=== PATIENT | male | born 1960 | race Caucasian/White ===

== ENCOUNTER 2024-11-22 09:23 | Outpatient (CLI) | payer MEDICARE, SELFPAY ==
--- OUTSIDE RECORDS SUMMARY | 2024-11-22 09:31 | XMS_ITS | Referral Summary ---
Author Organization [facility] Office Building [address] [place] [address] Care Team Providers Care Piping Design Specialist Name Role Phone Tomi Arenas MD Primary Care Provider Yee Tolbert Unavailable [phone] Fei Lind MD Unavailable [phone] Angela Rosales NP Unavailable [phone] Encounters Date Type Department Care Team Description 10/20/2024 10:38 AM CDT - 10/20/2024 11:59 PM CDT Hospital Encounter [facility] 2 [facility] [address] [place] [address] Fei Lind MD Spondylosis of lumbar region without myelopathy or radiculopathy (Primary Dx) Discharge Disposition: Discharge to home or self care 10/04/2024 1:21 PM CDT - 10/04/2024 11:59 PM CDT Hospital Encounter [facility] 2 [facility] [address] [place] [address] Fei Lind MD Sacroiliitis Discharge Disposition: Discharge to home or self care 09/23/2024 9:25 AM CDT - 09/23/2024 11:59 PM CDT Hospital Encounter [facility] 2 [facility] [address] [place] [address] Angela Rosales, JESUS Sacroiliitis (Primary Dx) Discharge Disposition: Discharge to home or self care from Last 3 Months Allergies No known active allergies Medications atenoloL (TENORMIN) 50 mg tablet Take 1 tablet (50 mg total) by mouth daily 2 Active clopidogreL (PLAVIX) 75 mg tablet Take 1 tablet (75 mg total) by mouth daily 3 Active fluorouraciL (EFUDEX) 5 % cream APPLY TO HANDS UP TO FOREARMSWITH GLOVES TWICE DAILY X 3 WEEKS 4 Active gabapentin (NEURONTIN) 100 mg capsule Take 1 capsule (100 mg total) by mouth 3 (three) times a day 4 Active hydroCHLOROthiaz macho (HYDRODIURIL) 25 mg tablet Take 1 tablet (25 mg total) by mouth daily 0 Active nitroglycerin (NITROSTAT) 0.[address] 1 tablet (0.4 mg total) under the tongue every 5 (five) minutes as needed 7 Active traZODone (DESYREL) 150 mg tablet Take 1 tablet (150 mg total) by mouth daily as needed 2 Active diclofenac sodium (VOLTAREN) 1 % gel 3 Active rosuvastatin (CRESTOR) 40 mg tablet Take 1 tablet (40 mg total) by mouth daily 4 Active multivit-min/fol ic/vit K/lycop (MEN'S MULTIVITAMIN ORAL) Take by mouth Active ascorbic acid (ascorbic acid with khloe hips) 500 mg tablet,chewable daily Acti ve glucosam-chondro itin-diet cb25 116-100 mg capsule Take by mouth Active omega-3 fatty acids-fish oil 300-1,000 mg capsule Take 2 capsules (2 g total) by mouth daily Active flaxseed oiL 1,000 mg capsule Take by mouth Active cetirizine (ZyrTEC) 10 mg tablet Take 1 tablet (10 mg total) by mouth daily Active celecoxib (CeleBREX) 200 mg capsule Take 1 capsule (200 mg total) by mouth 2 (two) times a day for 14 days 28 capsule 4 Active Active Problems Problem Noted Date Diagnosed Date Status post reverse total shoulder replacement, left 02/10/2024 Rotator cuff arthropathy, left 01/25/2024 Pain of lower extremity 12/01/2023 Sacroiliitis 10/29/2023 Hyperlipidemia 09/15/2023 Hypertension 09/15/2023 Mitral valve disorder 09/15/2023 Stenosis of cervical spine with myelopathy 01/06 Cervical radiculopathy 01/24/2022 Coronary artery disease invo lving [place] coronary artery of [place] heart without angina pectoris 07/20/2016 S/P angioplasty with stent 07/20/2016 Resolved Problems Problem Noted Date Diagnosed Date Resolved Date Lumbar radiculopathy, acute 10/21/2021 12/17/2023 Social History Tobacco Use Types Packs/Day Years Used Date Smoking Tobacco: Never Smokeless Tobacco: Never Tobacco Cessation:Counseling Given: Not Answered Alcohol Use Standard Drinks/Week Comments Yes 0 (1 standard drink = 0.6 oz pur e alcohol) AUDIT-C Answer Date Recorded Q1: How often do you have a drink containing alc ohol? 2-4 times a month 04/07/2024 Q2: How many drinks containi ng alcohol do you have on a typical day when you are drinking? 3 or 4 04/07/2024 Q3: How often do you have si x or more drinks on one occasion? Monthly 04/07/2024 PHQ-2 Answer Date Recorded PHQ-2 Total Score (If total score is 3 or more points, staff should administer the PHQ-9) 0 01/21/2024 PHQ-9 Answer Date Recorded PHQ-9 Total Score 1 01/21/2024 Personal Safety Answer Date Recorded Have you ever been in or are you currently in a harmful physical or emotional relationship or is someone making you feel afraid or unsafe? Denies 02/11/2024 Sex and Gender Information Value Date Recorded Sex Assigned at Not on file Legal Sex Male 12:36 AM GLOVE FACTORY SEWER Gender Identity Not on file Sexual Orientation Not on file Last Filed Vital Signs Vital Sign Reading Time Taken Comments Blood Pressure 127/85 10/20/2024 10:54 AM CDT Pulse 57 10/20/2024 10:54 AM CDT Temperature 36.3 C (97.4 F) 10/04/2024 1:32 PM CDT Respiratory Rate 18 10/20/2024 10:54 AM CDT Oxygen Saturation 99% 10/20/2024 10:54 AM CDT Inhaled Oxygen Concentration - - Weight 91.2 kg (201 lb) 04/07/2024 9:06 AM CDT Height 180.3 cm (5' 11) 04/07/2024 9:06 AM CDT Body Mass Index 28.03 04/07/2024 9:06 AM CDT Plan of Treatment Not on file Medical Devices Implanted Type Area Nurse Aide Evaluator Device Identifier Shelf Expiration Date Model / Serial / Lot [employer] Implant Pin Kit Glenoid Ar-9607s - Sna - [id number] Implanted:Qty: 1 on 02/11/2024 by Rex Munroe MD at [facility] Pin Left: Shoulder [employer] AR-9607S / NA / [id number] [employer] Univers Revers Shoulder 10 Stem Humeral Sterile Ar-9501-10s - [id number] Implanted:Qty: 1 on 02/11/2024 by Rex Munroe MD at [facility] Left: Shoulder [employer] [id number] 04/28/2027 AR-9501-1 0S / / [id number] [employer] Cup Humeral Univers Revers +2 Od36mm Shoulder Left Suture Kk-[id number] - [id number] Implanted:Qty: 1 on 02/11/2024 by Rex Munroe MD at [facility] Left: Shoulder [employer] [id number] 01/27/2028 AR-9502F- 36LCPC / / [id number] [employer] Univers Revers Biosync 39mm 24mm Glenosphere Taper Baseplate Jl-[id number] - [id number] Implanted:Qty: 1 on 02/11/2024 by Rex Munroe MD at [facility] Left: Shoulder [employer] [id number] 02/27/2028 AR-9564-2 439 / / [id number] [employer] Component Glenoid Modular Post Reverse 20mm Ar-9582-20 - [id number] Implanted:Qty: 1 on 02/11/2024 by Rex Munroe MD at [facility] Left: Shoulder [employer] 08/26/2028 AR-9582-2 0 / / [id number] [employer] Baseplate 24mm 20 Deg Full Augment Td-[id number] - [id number] Implanted:Qty: 1 on 02/11/2024 by Rex Munroe MD at [facility] Left: Shoulder [employer] 09/26/2028 AR-9580-2 420S / / [id number] [employer] Univers Revers 5.5mm 44mm Lock Modular Glenoid Peripheral Screw Ar-9563-44 - [id number] Implanted:Qty: 2 on 02/11/2024 by Rex Munroe MD at [facility] Left: Shoulder [employer] 10/27/2027 AR-9563-4 4 / / [id number] [employer] Insert Humeral Combo Reverse Poly Univers Revers +3x36mm Xd-6451-2068-3 - [id number] Implanted:Qty: 1 on 02/11/2024 by Rex Munroe MD at [facility] Left: Shoulder [employer] [id number] 05/28/2025 AR-9503-3 639-3 / / [id number] Procedures Procedure Name Priority Date/Time Associated Diagnosis Comments PAIN MGMT IMAGING SI JOINT RIGHT Schedule Routine, Read Routine (OP Routine) 10/04/2024 2:02 PM CDT Sacroiliitis from Last 3 Months Results * Imaging SI Joint Injection Right ([id number]) (10/04/2024 2:02 PM CDT) Narrative [facility] - 10/04/2024 2:03 PM CDT The images from this study are not interpreted by Radiology. Please refer to the physician's procedure / OR operative note. us Angela Rosales NP IMG PAIN MGMT PROCEDURES Fin al Result [facility] from Last 3 Months Insurance MEDICARE BLUE CROSS MEDICARE SUPPLEMENT MEDICARE [facility] CR[facility] MEDICARE SUPPLEMENT Advance Directives For more information, please contact: [phone] * Full Code (Latest Code Status on File) Date Activated Date Inactivated Comments 02/11/2024 10:38 AM 02/11/2024 5:12 PM Care Teams Piping Design Specialist Relationship Specialty Start Date End Date Tomi Arenas MD PCP - General 08/24/07 Yee Tolbert PA 4 [facility] [address] [place] [address] Physician Daycare Director Orthopedic Surgery 02/11/24 Fei Lind MD 2 [facility] [address] [place] [address] Consulting Physician Anesthesiology 10/20/24 Angela Rosales NP 1 [facility] [place] [address] Nurse Practitioner Family Medicine 10/20/24
--- OUTSIDE RECORDS SUMMARY | 2024-11-22 09:31 | XMS_ITS | Clinical Summary ---
Author Organization [facility] Address [address] [place] [address] Phone Care Team Providers Care Pizza Cook Name Role Phone Tomi Arenas MD Primary Care Provider Allergies No known active allergies Medications atorvastatin (LIPITOR) 40 mg tablet TK 1 T PO D 05/16/2020 Active celecoxib (CeleBREX) 200 mg capsule TK 1 C PO D 05/16/2020 Active clopidogreL (PLAVIX) 75 mg Tablet TK 1 T PO D 05/16/2020 Active atenoloL (TENORMIN) 50 mg tablet TK 1 T PO QD 05/16/2020 Active traZODone (DESYREL) 150 mg tablet 150 mg. 05/16/2020 Active Active Problems No known active problems Family History Medical History Relation Name Comments Cancer Mother Brain Tumor Relation Name Status Comments Mother Social History Tobacco Use Types Packs/Day Years Used Date Smoking Tobacco: Former Smokeless Tobacco: Never Alcohol Use Standard Drinks/Week Comments Yes 0 (1 standard drink = 0.6 oz pur e alcohol) Sex and Gender Information Value Date Recorded Sex Assigned at Not on file Legal Sex Male 1:47 PM JAVA ARCHITECT Gender Identity Not on file Sexual Orientation Not on file Last Filed Vital Signs Vital Sign Reading Time Taken Comments Blood Pressure 120/80 08/29/2020 9:21 AM JAVA ARCHITECT Pulse 60 08/29/2020 9:21 AM JAVA ARCHITECT Temperature 36.5 C (97.7 F) 08/29/2020 9:21 AM JAVA ARCHITECT Respiratory Rate - - Oxygen Saturation - - Inhaled Oxygen Concentration - - Weight 85.7 kg (189 lb) 08/29/2020 9:21 AM JAVA ARCHITECT Height 180.3 cm (5' 11) 08/29/2020 9:21 AM JAVA ARCHITECT Body Mass Index 26.36 08/29/2020 9:21 AM JAVA ARCHITECT Plan of Treatment Health Maintenance Due Date Last Done Comments DTAP/TDAP/TD VACCINES (1 - Tdap) 1979 COLORECTAL SCREENING 2005 Colorectal Cancer Screening 2005 FIT-DNA Q 3 years 2005 FIT/FOBT Q 1 year 2005 Flex Sig/CT Colonography Q 5 years 2005 ZOSTER VACCINE (1 of 2) 2010 INFLUENZA VACCINE (#1) 2024 RSV VACCINE (60+ or ) (1 - 1-dose 75+ series) 2035 Insurance [employer] BLUE PREFERRED Care Teams Pizza Cook Relationship Specialty Start Date End Date Tomi Arenas MD [address] [place] [address] PCP - General Family Practice 08/29/20
--- OUTSIDE RECORDS SUMMARY | 2024-11-22 09:31 | XMS_ITS | Clinical Summary ---
Author Organization [facility] Address [address] [place] [address] Phone Care Team Providers Care Customs Examiner Name Role Phone Tomi Arenas MD Primary Care Provider [phone] Medications methylPREDNISol one (MEDROL DOSPACK) 4 MG Tablet Therapy Pack See product package insert for dosing schedule 21 Tablet 06/12/2023 Active Social History Tobacco Use Types Packs/Day Years Used Date Smoking Tobacco: Never Smokeless Tobacco: Never Tobacco Cessation:Counseling Given: Not Answered Alcohol Use Standard Drinks/Week Comments Not Currently 0 (1 standard drink = 0.6 oz pur e alcohol) Sex and Gender Information Value Date Recorded Sex Assigned at Not on file Legal Sex Male 11:37 PM CDT Gender Identity Not on file Sexual Orientation Not on file Last Filed Vital Signs Vital Sign Reading Time Taken Comments Blood Pressure 128/68 06/12/2023 8:58 PM FINAL TESTER Pulse 66 06/12/2023 8:58 PM FINAL TESTER Temperature 36.8 C (98.3 F) 06/12/2023 7:44 PM FINAL TESTER Respiratory Rate 18 06/12/2023 8:58 PM FINAL TESTER Oxygen Saturation 99% 06/12/2023 8:58 PM FINAL TESTER Inhaled Oxygen Concentration - - Weight 86.2 kg (190 lb) 06/12/2023 7:44 PM FINAL TESTER Height 180.3 cm (5' 11) 06/12/2023 7:44 PM FINAL TESTER Body Mass Index 26.5 06/12/2023 7:44 PM FINAL TESTER Plan of Treatment Health Maintenance Due Date Last Done Comments Hepatitis C Virus (HCV) Screening 1960 TdaP Immunization 1960 Colonoscopy 2005 Colorectal Cancer Screening 2005 Cologuard 2010 Immunochemical Fecal Occult Blood 2010 Pneumococcal Immunization (50+ years) (1 of 1 - PCV) 2010 Zoster Immunization (1 of 2) 2010 PSA Discussion 2015 Influenza Immunization (#1) 2024 09/0 01/2023, 03/24/2022, 03/29/2021, Additional history exists SARS-COV-2 Immunization ( season) 2024 03/28/2022, 05/01/2021, 09/19/2020, Additional history exists Respiratory Syncytial Virus (RSV) Immunization (Adult) (1 - 1-dose 75+ series) 2035 Hepatitis B Immunization Completed 999, 12/18/1998, 11/20/1998 DTaP/Tdap/Td Immunization Discontinued 09/23/2005 Meningococcal Immunization (ACWY) Aged Out No longer eligible based on patient's age to complete this topic Rotavirus Immunization Aged Out No lo nger eligible based on patient's age to complete this topic Insurance MEDICARE [facility] Care Teams Customs Examiner Relationship Specialty Start Date End Date Tomi Arenas MD [address] [place] [address] PCP - General Family Medicine 06/12/23
--- OUTSIDE RECORDS SUMMARY | 2024-11-22 09:31 | XMS_ITS | Clinical Summary ---
Author Organization [facility] Office Building [address] [place] [address] Care Team Providers Care Aerial Hurricane Hunter Name Role Phone Tomi Arenas MD Primary Care Provider Yee Tolbert Unavailable [phone] Fei Lind MD Unavailable [phone] Angela Rosales NP Unavailable [phone] Allergies No known active allergies Medications atenoloL [...] radiculopathy 01/24/2022 Coronary artery disease invo lving [place] coronary artery of [place] heart without angina pectoris 07/20/2016 S/P angioplasty with stent 07/20/2016 Resolved Problems Problem Noted Date Diagnosed Date Resolved Date Lumbar radiculopathy, acute 10/21/2021 12/17/2023 Encounters Date Type Department Care Team Description 10/20/2024 10:38 AM CDT - 10/20/2024 11:59 PM CDT Hospital Encounter [facility] [address] [place] [address] Fei Lind MD Spondylosis of lumbar region without myelopathy or radiculopathy (Primary Dx) Discharge Disposition: Discharge to home or self care 10/04/2024 1:21 PM CDT - 10/04/2024 11:59 PM CDT Hospital Encounter [facility] 2 [facility] [address] [place] [address] Fei Lind MD Sacroiliitis Discharge Disposition: Discharge to home or self care 09/23/2024 9:25 AM CDT - 09/23/2024 11:59 PM CDT Hospital Encounter [facility] 2 [facility] [address] [place] [address] Angela Rosales NP Sacroiliitis (Primary Dx) Discharge Disposition: Discharge to home or self care from Last 3 Months Surgical History Surgery Date Site/Laterality Comments KNEE ARTHROSCOPY 2008 Right Arthroscopy knee BACK SURGERY Back surgery, discectomy- lumbar KNEE ARTHROCENTESIS Arthrocentesis of the right knee joint HERNIA REPAIR CORONARY ANGIOPLASTY WITH STENT PLACEMENT 06/29/2011 - 06/28/2012 x 2 CERVICAL FUSION 08/27/2022 - 09/26/2022 CARPAL TUNNEL RELEASE Left Medical History Medical History Date Comments MVP (mitral valve prolapse) Hypertension HLD (hyperlipidemia) CAD (coronary artery disease) Family History Medical History Relation Name Comments Hypertension Other Family history of Hypertension; Relation Name Status Comments Other Social History Tobacco Use Types Packs/Day Years [...] on file Legal Sex Male 12:36 AM DIABETES SPECIALIST Gender Identity Not on file Sexual Orientation Not on file Obstetrics History Last Filed Vital Signs Vital Sign Reading [...] 04/07/2024 9:06 AM CDT Plan of Treatment Health Maintenance Due Date Last Done Comments Colon Cancer Screening-Colonoscopy 1960 Hepatitis C Screening 1960 Prostate Cancer Screening-PSA 1960 Regular Well Visit/Exam 18-64 1978 DTaP/Tdap/Td Vaccine (1 - Tdap) 09/24/2005 09/23/2005 Zoster Vaccine (1 of 2) 2010 Depression Screening 01/20/2025 01/21/2024, 01/21/2024, 12/17/2023, Additional history exists Influenza Vaccine (Season Ended) 2025 03/06/2023, 03/24/2022, 03/29/2021, Additional history exists Hepatitis B Screening Completed 05/21/1999 , 12/18/1998, 11/20/1998 Pneumococcal vaccine <65 Aged Out No longer eligible based on patient's age to complete this topic Medical Devices Implanted Type Area Education Rn Device Identifier Shelf Expiration Date Model / Serial / Lot [employer] Implant Pin Kit Glenoid Ar-9607s - Sna - [id number] Implanted:Qty: 1 on 02/11/2024 by Rex Munroe MD at [facility] Pin Left: Shoulder [employer] AR-9607S / NA / [id number] [employer] Univers Revers Shoulder 10 Stem Humeral Sterile Ar-9501-10s - [id number] Implanted:Qty: 1 on 02/11/2024 by Rex Munroe MD at [facility] Left: Shoulder [employer] [id number] 04/28/2027 AR-9501-1 0S / / [id number] [employer] Cup Humeral Univers Revers +2 Od36mm Shoulder Left Suture Ov-[id number]-[id number] - [id number] Implanted:Qty: 1 on 02/11/2024 by Rex Munroe MD at [facility] Left: Shoulder [employer] [id number] 01/27/2028 AR-9502F- 36LCPC / / [id number] [employer] Univers Revers Biosync 39mm 24mm Glenosphere Taper Baseplate My-2296-3389 - [id number] Implanted:Qty: 1 on 02/11/2024 by Rex Munroe MD at [facility] Left: Shoulder [employer] [id number] 02/27/2028 AR-9564-2 439 / / [id number] [employer] Component Glenoid Modular Post Reverse 20mm Ar-9582-20 - [id number] Implanted:Qty: 1 on 02/11/2024 by Rex Munroe MD at [facility] Left: Shoulder [employer] 08/26/2028 AR-9582-2 0 / / [id number] [employer] Baseplate 24mm 20 Deg Full Augment Pu-[id number] - [id number] Implanted:Qty: 1 on 02/11/2024 by Rex Munroe MD at [facility] Left: Shoulder [employer] 09/26/2028 AR-9580-2 420S / / [id number] [employer] Univers Revers 5.5mm 44mm Lock Modular Glenoid Peripheral Screw Ar-9563-44 - [id number] Implanted:Qty: 2 on 02/11/2024 by Rex Munroe MD at [facility] Left: Shoulder [employer] 10/27/2027 AR-9563-4 4 / / [id number] [employer] Insert Humeral Combo Reverse Poly Univers Revers +3x36mm Fa-[id number] - [id number] Implanted:Qty: 1 on 02/11/2024 by Rex Munroe MD at [facility] Left: Shoulder [employer] [id number] 05/28/2025 AR-9503-3 639-3 [id number] Procedures Procedure Name Priority Date/Time Associated Diagnosis Comments PAIN MGMT IMAGING SI JOINT RIGHT Schedule Routine, Read Routine (OP Routine) 10/04/2024 2:02 PM CDT Sacroiliitis from Last 3 Months Results * Imaging SI Joint Injection Right ([id number]) (10/04/2024 2:02 PM CDT) Narrative [facility] - 10/04/2024 2:03 PM CDT The images from this study are not interpreted by Radiology. Please refer to the physician's procedure / OR operative note. Angela Rosales NP IMG PAIN MGMT PROCEDURES Fin al Result [facility] from Last 3 Months Insurance MEDICARE [facility] MEDICARE SUPPLEMENT MEDICARE [facility] BLUE CROSS MEDICARE SUPPLEMENT Advance Directives For more information, please contact: [phone] * Full Code (Latest Code Status on File) Date Activated Date Inactivated Comments 02/11/2024 10:38 AM 02/11/2024 5:12 PM Care Teams Aerial Hurricane Hunter Relationship Specialty Start Date End Date Tomi Arenas MD PCP - General 08/24/07 Yee Tolbert PA [address] [facility] [address] [place] [address] Physician Embedded Firmware Developer Orthopedic Surgery 02/11/24 Fei Lind MD [address] [facility] [address] [place] [address] Consulting Physician Anesthesiology 10/20/24 Angela Rosales NP [address] [facility] [place] [address] Nurse Practitioner Family Medicine 10/20/24
--- NOTE | 2024-11-22 10:30 | NEURO_ITS ---
Impression: # Complains of numbness of right hand. Status post cervical spine surgery in the past. ? # Mild early Carpal Tunnel Syndrome (sensory). ? # No ulnar neuropathy. ? # Needle/EMG exam mildly abnormal in right tricep. ? # Clinical correlation recommended. Nerve Conduction Studies Anti Sensory Summary Table ?Stim Site NR Peak (ms) P-T Amp (?V) Site1 Site2 Delta-P (ms) Dist (cm) Amadou (m/s) Right Median Anti Sensory (2-3nd Digit) Wrist ? 3.6 17.1 Wrist 2-3nd Digit 3.6 14.0 39 Wrist ? 3.8 23.1 Wrist 2-3nd Digit 3.6 14.0 39 Right Radial Anti Sensory (Base 1st Digit) Wrist ? 2.2 13.5 Wrist Base 1st Digit 2.2 0.0 Right Ulnar Anti Sensory (5th Digit) Wrist ? 2.5 19.8 Wrist 5th Digit 2.5 14.0 56 Motor Summary Table ?Stim Site NR Onset (ms) O-P Amp (mV) Site1 Site2 Delta-0 (ms) Dist (cm) Amadou (m/s) Right Median Motor (Abd Poll Brev) Wrist ? 3.8 1.3 Elbow Wrist 4.7 30.0 64 Elbow ? 8.5 1.7 Right Ulnar Motor (Abd Dig Minimi) Wrist ? 2.6 6.4 A Elbow Wrist 5.1 31.0 61 A Elbow ? 7.7 4.3 B Elbow Wrist 3.5 22.0 63 B Elbow ? 6.1 5.4 F Wave Studies ?NR F-Lat (ms) L-R F-Lat (ms) Right Median (Mrkrs) (Abd Poll Brev) ? 28.67 Right Ulnar (Mrkrs) (Abd Dig Min) ? 29.69 EMG ?Side Muscle Nerve Root Ins Act Fibs Amp Dur Recrt Comment Right 1stDorInt Ulnar C8-T1 Nml Nml Nml Nml Nml Right Ext Indicis Radial (Post Int) C7-8 Nml Nml Nml Nml Nml Right Ext Digitorum Radial (Post Int) C7-8 Nml Nml Nml Nml Nml Right BrachioRad Radial C5-6 Nml Nml Nml Nml Nml Right PronatorTeres Median C6-7 Nml Nml Nml Nml Nml Right Abd Poll Brev Median C8-T1 Nml Nml Nml Nml Nml Right ABD Dig Min Ulnar C8-T1 Nml Nml Nml Nml Nml Right FlexPolLong Median (Ant Int) C7-8 Nml Nml Nml Nml Nml Right Abd Poll Long Radial (Post Int) C7-8 Nml Nml Nml Nml Nml Right Biceps Musculocut C5-6 Nml Nml Nml Nml Nml Right Triceps Radial C6-7-8 Nml Nml Incr >12ms Nml
== END 2024-11-22 09:24 | disposition home or self-care (01) ==
PROVIDERS: Visit Provider Plastic Surgery
DX: G56.01 Carpal tunnel syndrome, right upper limb (principal)
CPT/HCPCS: 95886; 95909

== ENCOUNTER 2024-12-09 10:08 | Outpatient (CLI) | payer MEDICARE, SELFPAY ==
--- OUTSIDE RECORDS SUMMARY | 2024-12-09 10:18 | XMS_ITS | Clinical Summary ---
Author Organization [facility] Address [address] [place] [address] Phone Care Team Providers Care Electrical Tester Battery Name Role Phone Tomi Arenas MD Primary [...] on file Legal Sex Male 1:47 PM ART DEALER Gender Identity Not on file Sexual Orientation Not on file Last Filed Vital Signs Vital Sign Reading Time Taken Comments Blood Pressure 120/80 08/29/2020 9:21 AM ART DEALER Pulse 60 08/29/2020 9:21 AM ART DEALER Temperature 36.5 C (97.7 F) 08/29/2020 9:21 AM ART DEALER Respiratory Rate - - Oxygen Saturation - - Inhaled Oxygen Concentration - - Weight 85.7 kg (189 lb) 08/29/2020 9:21 AM ART DEALER Height 180.3 cm (5' 11) 08/29/2020 9:21 AM ART DEALER Body Mass Index 26.36 08/29/2020 9:21 AM ART DEALER Plan of Treatment Health Maintenance Due Date [...] 2035 Insurance [employer] BLUE PREFERRED Care Teams Electrical Tester Battery Relationship Specialty Start Date End Date Tomi Arenas MD [address] [place] [address] PCP - General Family Practice 08/29/20
--- OUTSIDE RECORDS SUMMARY | 2024-12-09 10:18 | XMS_ITS | Clinical Summary ---
Author Organization [facility] Address [address] [place] [address] Phone Care Team Providers Care Compliance Director Name Role Phone Tomi Arenas MD Primary Care Provider Medications methylPREDNISol one (MEDROL DOSPACK) 4 MG [...] Comments Blood Pressure 128/68 06/12/2023 8:58 PM INSPECTOR SCALES Pulse 66 06/12/2023 8:58 PM INSPECTOR SCALES Temperature 36.8 C (98.3 F) 06/12/2023 7:44 PM INSPECTOR SCALES Respiratory Rate 18 06/12/2023 8:58 PM INSPECTOR SCALES Oxygen Saturation 99% 06/12/2023 8:58 PM INSPECTOR SCALES Inhaled Oxygen Concentration - - Weight 86.2 kg (190 lb) 06/12/2023 7:44 PM INSPECTOR SCALES Height 180.3 cm (5' 11) 06/12/2023 7:44 PM INSPECTOR SCALES Body Mass Index 26.5 06/12/2023 7:44 PM INSPECTOR SCALES Plan of Treatment Health Maintenance Due Date Last Done Comments Hepatitis C Virus (HCV) Screening 1960 TdaP Immunization 1960 Cologuard 2005 Colonoscopy 2005 Colorectal Cancer Screening 2005 Immunochemical Fecal Occult Blood 2005 Pneumococcal Immunization (50+ years) (1 of 1 - PCV) 2010 Zoster Immunization (1 of 2) 2010 PSA Discussion 2015 SARS-COV-2 Immunization (5 - season) 2024 03/28/2022, 05/01/2021, 09/19/2020, Additional history exists Influenza Immunization (Season Ended) 2025 03/06/2023, 03/24/2022, 03/29/2021, Additional history exists Respiratory Syncytial Virus (RSV) Immunization (Adult) (1 - 1-dose 75+ series) 2035 Hepatitis B Immunization Completed 999, 12/18/1998, 11/20/1998 DTaP/Tdap/Td Immunization Discontinued 09/23/2005 Human Papillomavirus (HPV) Immunization Aged Out No longer eligible based on patient's age to complete this topic Meningococcal Immunization (ACWY) Aged Out No longer eligible based on patient's age to complete this topic Rotavirus Immunization Aged Out No lo nger eligible based on patient's age to complete this topic Insurance MEDICARE [facility] Care Teams Compliance Director Relationship Specialty Start Date End Date Tomi Arenas MD [address] [place] [address] PCP - General Family Medicine 06/12/23
--- OUTSIDE RECORDS SUMMARY | 2024-12-09 10:18 | XMS_ITS | Referral Summary ---
Author Organization [facility] Office Building [address] [place] [address] Care Team Providers Care Junior Automation Engineer Name Role Phone Tomi Arenas MD Primary Care Provider Yee Tolbert Unavailable [phone] Fei Lind MD Unavailable [phone] Angela Rosales NP Unavailable [phone] Encounters Date Type Department Care Team Description 11/24/2024 Telephone [facility] [address] [place] [address], [facility]. [address] [place] [address] Fei Lind MD 11/23/2024 9:48 AM CDT - 11/23/2024 11:59 PM CDT Hospital Encounter [facility] [address] [place] [address], [place] [place] [address] Fei Lind MD Spondylosis of lumbar region without myelopathy or radiculopathy Discharge Disposition: Discharge to home or self care 10/20/2024 10:38 AM CDT - 10/20/2024 11:59 PM CDT Hospital Encounter [facility] [address] [place] [address] A, [place] [place] [address] Fei Lind MD Spondylosis of lumbar region without myelopathy or radiculopathy (Primary Dx) Discharge Disposition: Discharge to home or self care 10/04/2024 1:21 PM CDT - 10/04/2024 11:59 PM CDT Hospital Encounter [facility] 2 [facility] A, [place] [place] [address] Fei Lind MD Sacroiliitis Discharge Disposition: Discharge to home or self care 09/23/2024 9:25 AM CDT - 09/23/2024 11:59 PM CDT Hospital Encounter [facility] 2 [facility] A, [place] [place] [address] Angela Rosales NP Sacroiliitis (Primary Dx) Discharge [...] a day for 14 days 28 capsule Active Active Problems Problem Noted Date Diagnosed Date Status post reverse total shoulder replacement, left 02/10/2024 Rotator cuff arthropathy, left 01/25/2024 Pain of lower extremity 12/01/2023 Sacroiliitis 10/29/2023 Hyperlipidemia 09/15/2023 Hypertension 09/15/2023 Mitral valve disorder 09/15/2023 Stenosis of cervical spine with myelopathy 01/06 Cervical radiculopathy 01/24/2022 Coronary artery disease invo lving [place] coronary artery of [place] heart without angina pectoris 07/20/2016 S/P angioplasty [...] on file 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 Gender Identity Not on file Sexual Orientation Not on file Last Filed Vital Signs Vital Sign Reading Time Taken Comments Blood Pressure 143/93 11/23/2024 10:19 AM CDT Pulse 57 11/23/2024 10:19 AM CDT Temperature 36.1 C (97 F) 11/23/2024 9:52 AM CDT Respiratory Rate 18 11/23/2024 10:19 AM CDT Oxygen Saturation 99% 11/23/2024 10:19 AM CDT Inhaled Oxygen Concentration - - Weight 91.2 kg (201 lb) 04/07/2024 9:06 AM CDT Height 180.3 cm (5' 11) 04/07/2024 9:06 AM CDT Body Mass Index 28.03 04/07/2024 9:06 AM CDT Plan of Treatment Not on file Medical Devices Implanted Type Area Tub Puller Device Identifier Shelf Expiration Date Model / Serial / Lot [employer] Implant Pin Kit Glenoid Ar-9607s - Sna - [id number] Implanted:Qty: 1 on 02/11/2024 by Rex Munroe MD at [facility] Pin Left: Shoulder [employer] AR-9607S / NA / [id number] [employer] Univers Revers Shoulder 10 Stem Humeral Sterile Ar-9501-10s - [id number] Implanted:Qty: 1 on 02/11/2024 by Rex Munroe MD at [facility] Left: Shoulder [employer] [id number] 04/28/2027 AR-9501-1 0S / / [id number] [employer] Cup Humeral Univers Revers +2 Od36mm Shoulder Left Suture [id number]-[id number]-[id number] - [id number] Implanted:Qty: 1 on 02/11/2024 by Rex Munroe MD at [facility] Left: Shoulder [employer] [id number] 01/27/2028 AR-9502F- 36LCPC / / [id number] [employer] Univers [facility] Biosync 39mm 24mm Glenosphere Taper Baseplate Mj-7963-6188 - [id number] Implanted:Qty: 1 on 02/11/2024 by Rex Munroe MD at [facility] Left: Shoulder [employer] [id number] 02/27/2028 AR-9564-2 439 / / [id number] [employer] Component Glenoid Modular Post Reverse 20mm Ar-9582-20 - [id number] Implanted:Qty: 1 on 02/11/2024 by Rex Munroe MD at [facility] Left: Shoulder [employer] 08/26/2028 AR-9582-2 0 / / [id number] [employer] Baseplate 24mm 20 Deg Full Augment Rs-[id number] - [id number] Implanted:Qty: 1 on 02/11/2024 by Rex Munroe MD at [facility] Left: Shoulder [employer] 09/26/2028 AR-9580-2 420S / / [id number] [employer] Univers Revers 5.5mm 44mm Lock Modular Glenoid Peripheral Screw Ar-9563-44 - [id number] Implanted:Qty: 2 on 02/11/2024 by Rex Munroe MD at [facility] Left: Shoulder [employer] 10/27/2027 AR-9563-4 4 / / [id number] [employer] Insert Humeral Combo Reverse Poly Univers Revers +3x36mm Gj-[id number] - [id number] Implanted:Qty: 1 on 02/11/2024 by Rex Munroe MD at [facility] Left: Shoulder [employer] [id number] 05/28/2025 AR-9503-3 639-3 / / [id number] Procedures Procedure Name Priority Date/Time Associated Diagnosis Comments PAIN MGMT IMAGING LUMBAR/SACRAL FACET/ MEDIAL BRANCH BLOCK BILATERAL Schedule Routine, Read Routine (OP Routine) 11/23/2024 10:13 AM CDT Spondylosis of lumbar region without myelopathy or radiculopathy PAIN MGMT IMAGING SI JOINT RIGHT Schedule Routine, Read Routine (OP Routine) 10/04/2024 2:02 PM CDT Sacroiliitis from Last 3 Months Results * Imaging Lumbar/Sacral Facet Medial Branch Block Bilateral ([id number]) (11/23/2024 10:13 AM CDT) Narrative [facility] - 11/23/2024 10:14 AM CDT The images from this study are not interpreted by Radiology. Please refer to the physician's procedure / OR operative note. us Fei Lind MD IMG PAIN MGMT PROCEDURE S Final Result Performing Organization Address [facility] Co de Phone Number [facility] * Imaging SI Joint Injection Right ([id number]) (10/04/2024 2:02 PM CDT) Narrative [facility] - 10/04/2024 2:03 PM CDT The images from this study are not interpreted by Radiology. Please refer to the physician's procedure / OR operative note. Angela Rosales NP IMG PAIN MGMT PROCEDURES Fin al Result Performing Organization Address [facility] Co de Phone Number [facility] from Last 3 Months Insurance MEDICARE [facility] MEDICARE SUPPLEMENT MEDICARE [facility] BLUE CROSS MEDICARE SUPPLEMENT Advance Directives For more information, please contact: [phone] * Full Code (Latest Code Status on File) Date Activated Date Inactivated Comments 02/11/2024 10:38 AM 02/11/2024 5:12 PM Care Teams Junior Automation Engineer Relationship Specialty Start Date End Date Tomi Arenas MD PCP - General 08/24/07 Yee Tolbert PA [address] [facility] [address] [address] Physician Vending Supervisor Orthopedic Surgery 02/11/24 Fei Lind MD [address] [facility] [facility] [address] [place], [place] [address], [place] [address] Consulting Physician Anesthesiology 10/20/24 Angela Rosales NP [address] [facility] [facility] [place] [address] Nurse Practitioner Family Medicine 10/20/24
--- OUTSIDE RECORDS SUMMARY | 2024-12-09 10:18 | XMS_ITS | Clinical Summary ---
Author Organization [facility] Office Building [address] [place] [address] Care Team Providers Care Paper Slitter Name Role Phone Tomi Arenas MD Primary Care Provider Yee Tolbert Unavailable [phone] Fei Lind MD Unavailable [phone] Angela Rosales NP Unavailable [phone] Allergies No known active allergies Medications atenoloL [...] radiculopathy 01/24/2022 Coronary artery disease invo lving [place] coronary artery of [place] heart without angina pectoris 07/20/2016 S/P angioplasty with stent 07/20/2016 Resolved Problems Problem Noted Date Diagnosed Date Resolved Date Lumbar radiculopathy, acute 10/21/2021 12/17/2023 Encounters Date Type Department Care Team Description 11/24/2024 Telephone [facility] 2 [facility] A, [address] [place] [address] Fei Lind MD 11/23/2024 9:48 AM CDT - 11/23/2024 11:59 PM CDT Hospital Encounter [facility] 2 [facility] A, [address] [place] [address] Fei Lind MD Spondylosis of lumbar region without myelopathy or radiculopathy Discharge Disposition: Discharge to home or self care 10/20/2024 10:38 AM CDT - 10/20/2024 11:59 PM CDT Hospital Encounter [facility] 2 [facility] A, [place] [address] Fei Lind MD Spondylosis of lumbar region without myelopathy or radiculopathy (Primary Dx) Discharge Disposition: Discharge to home or self care 10/04/2024 1:21 PM CDT - 10/04/2024 11:59 PM CDT Hospital Encounter [facility] 2 [facility], [place] [address] Fei Lind MD Sacroiliitis Discharge Disposition: Discharge to home or self care 09/23/2024 9:25 AM CDT - 09/23/2024 11:59 PM CDT Hospital Encounter [facility] [address] [place] [address], 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 Gender Identity Not on file Sexual Orientation [...] this topic Medical Devices Implanted Type Area Steeple Jack Device Identifier Shelf Expiration Date Model / Serial / Lot [employer] Implant Pin Kit Glenoid Ar-9607s - Sna - [id number] Implanted:Qty: 1 on 02/11/2024 by Rex Munroe MD at [facility] Pin Left: Shoulder [employer] AR-9607S / NA / [id number] [employer] Univers Revers Shoulder 10 Stem Humeral Sterile Ar-9501-10s - [id number] Implanted:Qty: 1 on 02/11/2024 by Rex Munroe MD at [facility] Left: Shoulder [employer] [id number] 04/28/2027 AR-9501-1 0S / / [id number] [employer] Cup Humeral Univers Revers +2 Od36mm Shoulder Left Suture Dj-[id number]-[id number] - [id number] Implanted:Qty: 1 on 02/11/2024 by Rex Munroe MD at [facility] Left: Shoulder [employer] [id number] 01/27/2028 AR-9502F- 36LCPC / / [id number] [employer] Univers Revers Biosync 39mm 24mm Glenosphere Taper Baseplate Yl-8491-4790 - [id number] Implanted:Qty: 1 on 02/11/2024 by Rex Munroe MD at [facility] Left: Shoulder [employer] [id number] 02/27/2028 AR-9564-2 439 / / [id number] [employer] Component Glenoid Modular Post Reverse 20mm Ar-9582-20 - [id number] Implanted:Qty: 1 on 02/11/2024 by Rex Munroe MD at [facility] Left: Shoulder [employer] 08/26/2028 AR-9582-2 0 / / [id number] [employer] Baseplate 24mm 20 Deg Full Augment Gq-[id number] - [id number] Implanted:Qty: 1 on 02/11/2024 by Rex Munroe MD at [facility] Left: Shoulder [employer] 09/26/2028 AR-9580-2 420S / / [id number] [employer] Univers Revers 5.5mm 44mm Lock Modular Glenoid Peripheral Screw Ar-9563-44 - [id number] Implanted:Qty: 2 on 02/11/2024 by Rex Munroe MD at [facility] Left: Shoulder [employer] 10/27/2027 AR-9563-4 4 / / [id number] [employer] Insert Humeral Combo Reverse Poly Univers Revers +3x36mm Ki-4820-6976-3 - [id number] Implanted:Qty: 1 on 02/11/2024 by Rex Munroe MD at [facility] Left: Shoulder [employer] [id number] 05/28/2025 AR-9503-3 639-3 / / [id number] Procedures Procedure Name Priority Date/Time Associated Diagnosis [...] Imaging Lumbar/Sacral Facet Medial Branch Block Bilateral ([id number]) (11/23/2024 10:13 AM CDT) Narrative [facility] - 11/23/2024 10:14 AM CDT The images from this study are not interpreted by Radiology. Please refer to the physician's procedure / OR operative note. us Fei Lind MD IMG PAIN MGMT PROCEDURE S Final Result [facility] * Imaging SI Joint Injection Right ([id number]) (10/04/2024 2:02 PM CDT) Narrative [facility] - 10/04/2024 2:03 PM CDT The images from this study are not interpreted by Radiology. Please refer to the physician's procedure / OR operative note. us Angela Rosales EMERGENCY RESPONSE OFFICER IMG PAIN MGMT PROCEDURES Fin al Result [facility] from Last 3 Months Insurance MEDICARE [facility] MEDICARE SUPPLEMENT [facility]ICARE [facility] BLUE CROSS MEDICARE SUPPLEMENT Advance Directives For more information, please contact: [phone] * Full Code (Latest Code Status on File) Date Activated Date Inactivated Comments 02/11/2024 10:38 AM 02/11/2024 5:12 PM Care Teams Paper Slitter Relationship Specialty Start Date End Date Tomi Arenas MD PCP - General 08/24/07 Yee Tolbert PA [address] [place] [address] [place] [address] Physician Pillowcase Maker Orthopedic Surgery 02/11/24 Fei Lind MD [address] [facility] [place] [address] Consulting Physician Anesthesiology 10/20/24 Angela Rosales NP [address] [facility] [place] [address] Nurse Practitioner Family Medicine 10/20/24
[2024-12-09 10:38] LABS: Anion Gap 7 mmol/L (4-12); Blood Urea Nitrogen 8 mg/dL (9-20); Calcium 9.3 mg/dL (8.4-10.2); Carbon Dioxide 26 mmol/L (22-30); Chloride 102 mmol/L (98-107); Estimated Glomerular Filt Rate > 60; Glucose 100 mg/dL (65-110); Potassium 4.1 mmol/L (3.4-5.0); Sodium 135 mmol/L (137-145)
--- NOTE | 2024-12-09 11:00 | ECG_ITS ---
Test Date: 2024-12-09 11:13:10 Measurements Intervals [place] Rate: 50 P: -23 WA: 149 QRS: -2 QRSD: 86 T: 45 QT: 432 QTc: 398 Interpretive Statements SINUS BRADYCARDIA CONSIDER INFERIOR INFARCT, AGE INDETERMINATE ABNORMAL ECG No previous ECG available for comparison Electronically Signed On 12-09-2024 11:15:59 CDT by Thierry Francisco D.O.
== END 2024-12-09 10:09 | disposition home or self-care (01) ==
PROVIDERS: PCP Family Medicine; Visit Provider Anesthesiology
DX: G56.21 Lesion of ulnar nerve, right upper limb (principal); R94.31 Abnormal electrocardiogram [ECG] [EKG]
CPT/HCPCS: 36415; 80048; 93005

== ENCOUNTER 2024-12-21 07:42 | Outpatient (RCR) | payer MEDICARE, SELFPAY ==
--- NOTE | 2024-12-22 | S_PTH ---
PATIENT: Harrison Castillo LOC: [facility]#:[id number] AGE/SX: 64/M ROOM: RE12/21/[address]: Davidson Flores MD : 1960 BED: DIS: 12/22/2024 SPEC #: [id number] RECD: 12/23/24 08:30 STATUS: RYAN REQ #: [id number] DANIELLA: 12/22/24 00:[address]: Davidson Flores DEPT: [facility] Surgical RECD BY: Jeane Mays ENTERED: 12/23/24 08:31 SP TYPE: Surgical OTHR DR: Tomi ArenasMD Tissues: A - Mass Procedures: Hematoxylin and Eosin Stain Gross and Microscopic Level 3
== END 2024-12-22 06:37 | disposition home or self-care (01) ==
LOC: ANHLAB 07:42
PROVIDERS: PCP Family Medicine; Visit Provider Plastic Surgery
DX: M67.431 Ganglion, right wrist (principal)
CPT/HCPCS: 88304

== ENCOUNTER 2024-12-22 08:07 | Day surgery (SDC) | payer MEDICARE, SELFPAY ==
[2024-12-06 14:15] VITALS: BMI 26.7
--- NOTE | 2024-12-22 07:04 | PM.HPGS ---
History of Present Illness History of Present Illness Chief complaint: Capral and Cubital Tunnel Syndrome, Ganglion Cyst Narrative: Patient seen and examined in pre-operative holding area. No interval change in medical history or symptoms. Patient recalls previous discussion of benefits and alternatives to procedure. Continues to desire to proceed with right endoscopic possible open carpal tunnel release, right cubital tunnel release and right volar wrist ganglion cyst excision. Reviewed procedure, post-op expectations and risks including but not limited to bleeding, infection, injury to tendon/nerve/vessel, decreased hand function, stiffness, RSD, no change or worsening of symptoms, recurrence. I discussed the possible use of assistants and their participation in the case. Patient stated understanding and signed the consent form wishing to proceed. Review of Systems Review of Systems: All systems reviewed & are unremarkable except as noted in HPI and below PMFSH Past Medical History Medical History (Updated 12/06/24 @ 14:32 by Christina Merrill RN) Lumbar radiculopathy, right Mitral valve prolapse Surgical History Surgical History History of hernia repair History of lumbar discectomy History of carpal tunnel release (~1999) History of arthroscopy of right knee (~2007) Hx of right coronary artery stent placement (~2011) History of arthroscopy of knee (~2011) Social History Social History Smoking packs per day: 1 Smoking cigarettes per day: 20.0 Years smoked: 15 Smoking pack-years: 15.00 Smoking status: Never smoker Tobacco type: cigarettes Second hand tobacco smoke exposure: Yes Smoking end date: 06/29/94 Alcohol intake: current Drinks per week: 12 Substance use: never Substance use type: does not use Living arrangements: with family Spiritual care concerns: No Meds Home Medications and Allergies Home Medications ?Medication ?Instructions ?Recorded ?Confirmed ?Type atenolol 50 mg tablet 50 mg PO DAILY 06/01/20 12/22/24 History atorvastatin 40 mg tablet 40 mg PO DAILY 06/01/20 12/22/24 History celecoxib 200 mg capsule (Celebrex) 200 mg PO DAILY 06/01/20 12/22/24 History clopidogrel 75 mg tablet 75 mg PO DAILY 06/01/20 12/22/24 History hydrochlorothiazide 25 mg tablet 25 mg PO DAILY 06/01/20 12/22/24 History tramadol 50 mg tablet 50 mg PO Q6H PRN pain #12 tabs 12/22/24 Rx Allergies Allergy/AdvReac Type Severity Reaction Status Date / Time No Known Allergies Allergy Unknown Verified 12/22/24 09:05 Exam Narrative: unchnaged Assessment and Plan Assessment and plan (1) Ulnar neuropathy at elbow of right upper extremity: Code(s): G56.21 - Lesion of ulnar nerve, right upper limb Status: Acute Assessment and Plan: cont as above (2) Carpal tunnel syndrome of right wrist: Code(s): G56.01 - Carpal tunnel syndrome, right upper limb Status: Acute (3) Ganglion cyst of volar aspect of right wrist: Code(s): M67.431 - Ganglion, right wrist Status: Acute
--- NOTE | 2024-12-22 07:04 | W.PM.PROC2 ---
Procedure Note - Detailed Date of Procedure 12/22/24 Pre-op Diagnosis right carpal and Cubital Tunnel Syndrome, right volar wrist mass Post-op Diagnosis Same Procedure Performed right ectr, right CuTR and right volar wrist mass excision Surgeon Davidson Flores MD Water Resource Engineering Specialist terrance nguyễn pa-c Anesthesia MAC Description of Procedure INFORMED CONSENT: The patient was seen and examined and marked in the pre-op area.? The patient signed the consent form. PROCEDURE IN DETAIL:The patient taken back to OR on the stretcher in supine position. Time out performed with anesthesia, surgeon and staff agreeing on patient's name site and surgery to be performed SCDs were placed on the lower extremities and inflated. A tourniquet was placed on {right} upper extremity and antibiotics given IV After anesthesia administered sedation I injected {10}cc 1%lido with epi and 0.5% marcaine plain at the operative sites The?{right upper extremity}?was prepped and draped in sterile fashion the??{right upper extremity} was? exsanguinated proximal to cyst with Esmarch bandage and tourniquet inflated to 250mmHg I made a transverse incision in the {right} volar distal wrist crease through skin and dermis with 15 blade scalpel.? Littler scissors spread down to antebrachial fascia. A small incision was made in antebrachial fascia allowing access to Carpal tunnel. I proceeded with sequential dilation staying in line with the ring finger and hugging the hook of the hamate.? I then used the synovial elevator to free any adhesions from the underside of the transverse carpal ligament. Next I was able to insert the Microaire endoscopic carpal tunnel device with direct visualization of the transverse fibers on the monitor and proceeded with complete segmental retrograde release of the ligament in its entirety.? I irrigated with normal saline and closed with 4-0 monocryl for dermis and subcuticular closure. I next proceeded with making a longitudinal incision between two heads for flexor carpi ulnaris at end of {right} cubital tunnel with 15 blade scalpel.? Littler scissors were used to spread down to FCU fascia.? An incision was made in FCU fascia and ulnar nerve identified exiting cubital tunnel.? I proceeded with complete retrograde release of the cubital tunnel including 7cm proximal for the intermuscular septum.? The nerve appeared healthy with visible vaso nervorum.? There was no subluxation on full elbow range of motion. ? I irrigated with normal saline and closure with 3-0 Vicryl and 4-0 Monocryl. Next I proceeded with making a longitudinal incision over the right volar wrist mass through skin and dermis with a 15 blade scalpel. Littler scissors were used to spread through subcutaneous tissue down to the antebrachial fascia. I made an incision in the fasscia and identified the radial artery and the mas which was closely adherent to the artery and accompanying veings. The tourniquet was let down to allow better visualization of the vessels and the artery was pulsatile and intact and protected throughout the procedure. I proceeded with dissection of this mass with a combination of littler scissors and bipolar off the artery. No stalk was identified coming from this mass down to joint capsule. I irrigated with normal saline. I closed skin with 3-0 vicryl and 4-0 Monocryl. The incisions were covered with Dermabond then 4x4s, leonard, and a posterior elbow and volar wrist splint for patient safety, security and comfort and secured with halie bandages noting the hand was warm and well perfused.? Patient awaken from anesthesia and transferred to recovery in stable condition Complications - none EBL- 5cc Disposition - home in stable condition Terrance Nguyễn PA-C was essential for positioning, retraction, closure and dressing placement [facility] Billing Surgery - Charge Forward: Surgery Billing ([id number] same for terrance polanco )
[2024-12-22 09:06] VITALS: BP 112/74; PULSE 57; RESP 17; TEMP 36.8; O2SAT 100
[2024-12-22] MEDS: LACTATED RINGERS 1,000 ML 30 ML IV CONT (09:09)
--- NOTE | 2024-12-22 10:22 | WPDANESEPP ---
Anes - Eval Pre Procedure Procedure: Operation Date: 12/22/24 10:30 Proposed Procedures p Right Endoscopic Carpal Tunnel Release, Possible Open Carpal Tunnel Release - Davidson Flores MD s Right Cubital Tunnel Release - Davidson Flores MD s Excision Ganglion Cyst Right Volar Wrist - Davidson Flores MD Date/Time: 12/22/24 10:22 Pre Op Diagnosis: Capral and Cubital Tunnel Syndrome, Ganglion Cyst Patient Data Age: 64 Gender: M Height: 1.8 m Weight: 87 kg Last Vital Signs Temp 98.2 F 12/22/24 09:06 Pulse 57 L 12/22/24 09:06 Resp 17 12/22/24 09:06 BP 112/74 12/22/24 09:06 Pulse Ox 100 12/22/24 09:06 O2 Del Method Room Air 12/22/24 09:06 Allergies Allergy/AdvReac Type Severity Reaction Status Date / Time No Known Allergies Allergy Unknown Verified 12/22/24 09:05 Home Medications ?Medication ?Instructions ?Recorded ?Confirmed ?Type atenolol 50 mg tablet 50 mg PO DAILY 06/01/20 12/22/24 History atorvastatin 40 mg tablet 40 mg PO DAILY 06/01/20 12/22/24 History celecoxib 200 mg capsule (Celebrex) 200 mg PO DAILY 06/01/20 12/22/24 History clopidogrel 75 mg tablet 75 mg PO DAILY 06/01/20 12/22/24 History hydrochlorothiazide 25 mg tablet 25 mg PO DAILY 06/01/20 12/22/24 History Patient hx anesthesia problems: none Family hx anesthesia problems: none Results Review: All pre-operative results and documents have been reviewed as part of the pre-operative evaluation. [facility] Past Medical History Medical History (Updated 12/06/24 @ 14:32 by Christina Merrill RN) Lumbar radiculopathy, right Mitral valve prolapse Surgical History Surgical History History of hernia repair History of lumbar discectomy History of carpal tunnel release (~1999) History of arthroscopy of right knee (~2007) Hx of right coronary artery stent placement (~2011) History of arthroscopy of knee (~2011) Social History Social History Smoking packs per day: 1 Smoking cigarettes per day: 20.0 Years smoked: 15 Smoking pack-years: 15.00 Smoking status: Never smoker Tobacco type: cigarettes Second hand tobacco smoke exposure: Yes Smoking end date: 06/29/94 Alcohol intake: current Drinks per week: 12 Substance use: never Substance use type: does not use Living arrangements: with family Spiritual care concerns: No Comments asa3 Exam Day of Procedure 12/22/24 10:22 Heart: regular rate and rhythm Lungs: clear to auscultation Airway: Mallampati scale class II Neurological: alert and oriented
[2024-12-22] MEDS: ceFAZolin SODIUM 2 GM/20 ML SW SYRINGE IV PUSH (11:28)
[2024-12-22] MEDS: BUPivacaine HCL 0.5% PF 30 ML VIAL 5 ML INFILTRATE (12:01)
[2024-12-22] MEDS: LIDO 1%/EPINEPHRINE 1:100,000 10 ML VIAL 5 ML INFILTRATE (12:02)
--- NOTE | 2024-12-22 12:11 | WPDANESPN ---
Anes - Prog Note Post-Op Date/Time: 12/22/24 12:11 Vital Signs: Last Vital Signs Temp 98.2 F 12/22/24 09:06 Pulse 57 L 12/22/24 09:06 Resp 17 12/22/24 09:06 BP 112/74 12/22/24 09:06 Pulse Ox 100 12/22/24 09:06 O2 Del Method Room Air 12/22/24 09:06 Pain Score (VAS): zero Patient Feedback: Patient satisfied with anesthetic care.
[2024-12-22 12:22] VITALS: BP 97/58; PULSE 68; RESP 16; O2SAT 95
[2024-12-22 12:32] VITALS: BP 98/74; PULSE 58; RESP 16; O2SAT 96
[2024-12-22 12:42] VITALS: BP 101/79; PULSE 57; RESP 16; O2SAT 97
== END 2024-12-22 12:55 | disposition home or self-care (01) ==
PROVIDERS: PCP Family Medicine; Visit Provider Plastic Surgery
PROC: 01N54ZZ Release Median Nerve, Percutaneous Endoscopic Approach (ICD-10-PCS; CPT 29848; principal; 2024-12-22 10:30)
PROC: (CPT 64718; 2024-12-22 10:30)
PROC: (CPT 29848; 2024-12-22 10:30)
DX: G56.01 Carpal tunnel syndrome, right upper limb (principal); G56.21 Lesion of ulnar nerve, right upper limb; M67.431 Ganglion, right wrist
CPT/HCPCS: 29848; 64718; 25111

== ENCOUNTER 2025-03-24 10:46 | Outpatient (CLI) | payer MEDICARE, SELFPAY ==
--- NOTE | ~2025-03-24 | XR_ITS ---
EXAMINATION: XR knee RT min 4V, 03/24/2025 10:59 CDT HISTORY: Unilateral primary osteoarthritis, right knee pain x 3 weeks COMPARISON: No comparisons available. Findings: No acute fracture or malalignment. Severe tricompartmental degenerative changes with chondrocalcinosis and small joint effusion with calcified loose bodies noted, there is severe calcification of the quadriceps tendon. Soft tissues unremarkable. Impression: No acute fracture or malalignment. Reviewed, dictated and finalized at location P. Impression: No acute fracture or malalignment.
== END 2025-03-24 10:47 | disposition home or self-care (01) ==
PROVIDERS: PCP Family Medicine; Visit Provider Orthopaedic Surgery
DX: M17.11 Unilateral primary osteoarthritis, right knee (principal)
CPT/HCPCS: 73564

== ENCOUNTER 2025-04-28 12:21 | Emergency (ER) | payer MEDICARE, SELFPAY ==
--- OUTSIDE RECORDS SUMMARY | 2025-04-26 15:02 | XMS_ITS | Encounter Summary ---
Author Organization [facility] Address [facility] [place] [address] Care Team Providers Care Offset Press Operator Apprentice Name Role Phone Tomi Sorenson MD Primary Care Provider [phone] Reason for Referral * Imaging (Emergency) - Closed Specialty Diagnoses / Procedures Referred By Contac t Referred To Contact RADIOLOGY Diagnoses Headache Procedures CT HEAD WO Tomi Maria MD [address] [place] [phone] Phone: tel: fax: Referral ID Status Reason Start Date Expiration Date Visits Re quested Visits Authorized [id number] Closed 04/26/2025 04/27/2026 1 1 Reason for Visit * Imaging (Emergency) - Closed Specialty Diagnoses / Procedures Referred By Contac dalia Referred To Contact RADIOLOGY Diagnoses Headache Procedures CT HEAD WO Tomi Maria MD [address] [place] [phone] Phone: tel: fax: Referral ID Status Reason Start Date Expiration Date Visits Re quested Visits Authorized [id number] Closed 04/26/2025 04/27/2026 1 1 Encounter Details Date Type Department Care Team (Latest Contact Info) Description 04/26/2025 3:02 PM CDT - 04/26/2025 11:59 PM CDT Hospital Encounter [facility] [address] [place] [address] Tomi Sorenson MD [address] [place] [phone] Arrived Discharge Disposition: Home or Self Care (Routine Discharge) Social History Tobacco Use Types Packs/Day Years Used Date Smoking Tobacco: Former Smokeless Tobacco: Never Alcohol Use Standard Drinks/Week Comments Yes 0 (1 standard drink = 0.6 oz pur e alcohol) 12 pack per week. 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 04/13/2012 celecoxib (CELEBREX) 200 MG capsule Celebrex (celecoxib) capsule 200 mg; take as directed; 0; 31-Aug-2013; Active 08/31/2013 clopidogrel 75 MG tablet Take 1 tablet by mouth daily. 09/29/2012 gabapentin 300 MG capsule Take 300 mg by mouth 2 (two) times daily. 09/23/2021 hydroCHLOROthiazi de 25 MG tablet Take 25 mg by mouth daily. 05/16/2020 nitroGLYCERIN 0.[address] 1 tablet (0.4 mg total) under the tongue every 5 (five) minutes as needed for Chest Pain. 25 tablet 07/23/2016 rosuvastatin 40 MG tablet Take 40 mg by mouth daily. 08/11/2021 traZODone 150 MG tablet Take 1 tablet by mouth daily. 04/26/2012 documented as of this encounter Plan of Treatment Not on file documented as of this encounter Procedures Procedure Name Priority Date/Time Associated Diagnosis Comments CT HEAD WO CON STAT 04/26/2025 3:07 PM CDT Headache documented in this encounter Results * CT HEAD WO CON (04/26/2025 3:07 PM CDT) Anatomical Region Laterality Modality Head Computed Tomogra phy 04/26/2025 3:16 PM CDT Impressions 04/26/2025 3:20 PM CDT IMPRESSION: 1. No acute intracranial process identified. 2. Mild small vessel disease. 3. Sinus disease as described. Ordered By: TOMI SORENSON Interpreted By: Figueroa Rucker MD, 04/26/2025 3:16 PM Narrative 04/26/2025 3:20 PM CDT [address] [place] [address] Examination: CT of the head without contrast. Exam time: 1511 hours. Clinical history: Headache. Dizziness. Weakness. History of hypertension. Comparison: None. Technique: Noncontrast axial scans from skull base to vertex. Sagittal and coronal reconstructions were performed from the data set. A dose lowering technique was used for this procedure, which may include, but is not limited to, dose reduction techniques, automated exposure control, the use of iterative reconstruction and ALARA/Image Gently techniques. Findings: The ventricles are normal in size and configuration. No shift of midline or mass effect is noted. Incidental choroidal fissure cyst on the right is noted. There is mild prominence of the fissures and sulci, compatible with age. There is mild periventricular decreased attenuation, compatible with small vessel disease. Intracranially, no other areas of abnormal x-ray attenuation are identified. In particular, there is no mass, hemorrhage or sign of acute stroke. No extracerebral fluid collections. The mastoid air cells appear clear. There is minor mucosal thickening in the sphenoid sinus and scattered ethmoid air cells. There are small rounded masses in either maxillary sinus compatible with polyps or mucous retention cysts. Procedure Note Figueroa Rucker MD - 04/26/[address] [place] [address] Examination: CT of the head without contrast. Exam time: 1511 hours. Clinical history: Headache. Dizziness. Weakness. History of hypertension. Comparison: None. Technique: Noncontrast axial scans from skull base to vertex. Sagittal andcoronal reconstructions were performed from the data set. A dose loweringtechnique was used for this procedure, which may include, but is notlimited to, dose reduction techniques, automated exposure control, the useof iterative reconstruction and ALARA/Image Gently techniques. Findings: The ventricles are normal in size and configuration. No shift ofmidline or mass effect is noted. Incidental choroidal fissure cyst on theright is noted. There is mild prominence of the fissures and sulci,compatible with age. There is mild periventricular decreased attenuation,compatible with small vessel disease. Intracranially, no other areas ofabnormal x-ray attenuation are identified. In particular, there is nomass, hemorrhage or sign of acute stroke. No extracerebral fluidcollections. The mastoid air cells appear clear. There is minor mucosalthickening in the sphenoid sinus and scattered ethmoid air cells. Thereare small rounded masses in either maxillary sinus compatible with polypsor mucous retention cysts. IMPRESSION: 1. No acute intracranial process identified. 2. Mild small vessel disease. 3. Sinus disease as described. Ordered By: TOMI SORENSON Interpreted By: Figueroa Rucker MD, 04/26/2025 3:16 PM us Tomi Sorenson MD CT Final Resul t documented in this encounter Visit Diagnoses Diagnosis Headache documented in this encounter Care Teams Offset Press Operator Apprentice Relationship Specialty Start Date End Date Tomi Sorenson MD [address] [place] [phone] PCP - General FAMILY PRACTICE 07/18/16 documented as of this encounter
--- OUTSIDE RECORDS SUMMARY | 2025-04-27 13:37 | XMS_ITS | Encounter Summary ---
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 Not on file Not on file Not on file documented as of this encounter Plan of Treatment Not on file documented as of this encounter Procedures Procedure Name Priority Date/Time Associated Diagnosis Comments RESPIRATORY PCR PANEL 2 Routine 04/27/2025 1:48 PM CDT Fever SED RATE, ERYTHROCYTE (ESR) Routine 04/27/2025 1:47 PM CDT Arthralgia CBC W/DIFF AUTOMATED Routine 04/27/2025 1:47 PM CDT Arthralgia documented in this encounter Results * RESPIRATORY PCR PANEL (W COVID) (04/27/2025 1:48 PM CDT) ADENOVIRUS PCR (RESP) NOT DETECTED NOT DETECTED 04/27/2025 7:18 PM CDT [facility] CORONAVIRUS 229E PCR (RESP) NOT DETECTED NOT DETECTED 04/27/2025 7:18 PM CDT [facility] CORONAVIRUS HKU1 PCR (RESP) NOT DETECTED NOT DETECTED 04/27/2025 7:18 PM CDT [facility] CORONAVIRUS NL63 PCR (RESP) NOT DETECTED NOT DETECTED 04/27/2025 7:18 PM CDT [facility] CORONAVIRUS OC43 PCR (RESP) NOT DETECTED NOT DETECTED 04/27/2025 7:18 PM CDT [facility] METAPNEUMOVIRUS PCR (RESP) NOT DETECTED NOT DETECTED 04/27/2025 7:18 PM CDT [facility] RHINOVIRUS/ENTEROV IRUS PCR (RESP) NOT DETECTED NOT DETECTED 04/27/2025 7:18 PM CDT [facility] INFLUENZA A PCR (RESP) NOT DETECTED NOT DETECTED 04/27/2025 7:18 PM CDT [facility] INFLUENZA B PCR (RESP) NOT DETECTED NOT DETECTED 04/27/2025 7:18 PM CDT [facility] PARAINFLUENZA 1 PCR (RESP) NOT DETECTED NOT DETECTED 04/27/2025 7:18 PM CDT [facility] PARAINFLUENZA 2 PCR (RESP) NOT DETECTED NOT DETECTED 04/27/2025 7:18 PM CDT [facility] PARAINFLUENZA 3 PCR (RESP) NOT DETECTED NOT DETECTED 04/27/2025 7:18 PM CDT [facility] PARAINFLUENZA 4 PCR (RESP) NOT DETECTED NOT DETECTED 04/27/2025 7:18 PM CDT [facility] RSV PCR (RESP) NOT DETECTED NOT DETECTED 04/27/2025 7:18 PM CDT [facility] B PARAPERTUSIS PCR (RESP) NOT DETECTED NOT DETECTED 04/27/2025 7:18 PM CDT [facility] BORDETELLA PERTUSSIS PCR (RESP) NOT DETECTED NOT DETECTED 04/27/2025 7:18 PM CDT [facility] CHLAMYDOPHILA PNEUMONIAE PCR (RESP) NOT DETECTED NOT DETECTED 04/27/2025 7:18 PM CDT [facility] MYCOPLASMA PNEUMONIAE PCR (RESP) NOT DETECTED NOT DETECTED 04/27/2025 7:18 PM CDT [facility] CORONAVIRUS SARS COV 2 PCR (RESP) NOT DETECTED NOT DETECTED 04/27/2025 7:18 PM CDT [facility] NASOPHARYNGEAL SWAB / Unknown 04/27/2025 1:48 PM CDT Tomi Arenas MD MICROBIOLOGY - [facility] Final Result [facility] [address] [place] [address], [place] [phone] [id number] * SED RATE, ERYTHROCYTE (ESR) (04/27/2025 1:47 PM CDT) ESR 9 0 - 15 MM/HR 04/27/2025 2:10 PM CDT [facility] 04/27/2025 1:47 PM CDT Tomi Arenas MD LABORATORY Final Resul t [facility] [address] [place] [address], [place] [phone] * (ABNORMAL) CBC W/DIFF AUTOMATED (04/27/2025 1:47 PM CDT) WBC 11.27(H) 4.00 - 10.80 x10'3/uL 04/27/2025 1:53 PM CDT [facility] RBC 4.75 4.50 - 6.10 x10'6/uL 04/27/2025 1:53 PM CDT [facility] HGB 14.5 13.0 - 18.0 G/DL 04/27/2025 1:53 PM CDT [facility] HCT 42.1 37.0 - 52.0 % 04/27/2025 1:53 PM CDT [facility] MCV 88.6 78.0 - 100.0 FL 04/27/2025 1:53 PM CDT [facility] MCH 30.5 27.0 - 31.0 PG 04/27/2025 1:53 PM CDT [facility] MCHC 34.4 33.0 - 36.0 G/DL 04/27/2025 1:53 PM CDT [facility] RDW 11.5 11.5 - 14.5 % 04/27/2025 1:53 PM CDT [facility] PLT 278 150 - 350 x10'3/uL 04/27/2025 1:53 PM CDT [facility] MPV 9.7 7.4 - 10.4 FL 04/27/2025 1:53 PM CDT [facility] CBC COMMENT NORMAL REFERENCE RANGE NOT ESTABLISHED FOR THE PROPORTIONAL LEUKOCYTE DIFFERENTIAL. 04/27/2025 1:53 PM CDT [facility] NEUTROPHILS % 85.6 % 04/27/2025 1:53 PM CDT [facility] LYMPHOCYTES % 7.1 % 04/27/2025 1:53 PM CDT [facility] MONOCYTES % 6.4 % 04/27/2025 1:53 PM CDT [facility] EOSINOPHILS % 0.1 % 04/27/2025 1:53 PM CDT [facility] BASOPHILS % 0.4 % 04/27/2025 1:53 PM CDT [facility] IMMATURE GRANS % 0.4 % 04/27/20 1:53 PM CDT [facility] NRBC % 0.0 % 04/27/2025 1:53 PM CDT [facility] ABS. NEUTROPHILS 9.66(H) 1.60 - 8.30 x10'3/uL 04/27/2025 1:53 PM CDT [facility] ABS. LYMPHOCYTES 0.80 0.80 - 4.70 x10'3/uL 04/27/2025 1:53 PM CDT [facility] ABS. MONOCYTES 0.72 0.00 - 1.50 x10'3/uL 04/27/2025 1:53 PM CDT [facility] ABS. EOSINOPHILS 0.01 0.00 - 0.40 x10'3/uL 04/27/2025 1:53 PM CDT [facility] ABS. BASOPHILS 0.04 0.00 - 0.20 x10'3/uL 04/27/2025 1:53 PM CDT [facility] ABS. IMMATURE GRANULOCYTES 0.04(H) 0.00 - 0.03 x10'3/uL 04/27/2025 1:53 PM CDT [facility] ABS. NUCLEATED RBC'S 0.00 0.00 - 0.01 x10'3/uL 04/27/2025 1:53 PM CDT [facility] 04/27/2025 1:47 PM CDT us Tomi Arenas MD LABORATORY Final Resul t [facility] [address] [phone] documented in this encounter Visit Diagnoses Diagnosis Fever Fever, unspecified Arthralgia Pain in joint, site unspecified documented in this encounter Additional Health Concerns Infection Onset Date Last Indicated Resolved Time Respiratory Rule Out 04/27/2025 04/27/2025 025 7:18 PM CDT documented as of this encounter Care Teams Instructional Manager Relationship Specialty Start Date End Date Tomi Arenas MD [address] [place], [place] [phone] PCP - General FAMILY PRACTICE 07/18/16 documented as of this encounter
[2025-04-28] VITALS (8 sets, daily range): BP systolic 121–139; BP diastolic 80–93; PULSE 65–70; RESP 11–17; TEMP 36.5–36.6; O2SAT 96–100
--- NOTE | ~2025-04-28 | CT_ITS ---
EXAMINATION: CT brain wo con DATE: 04/28/2025 16:23 INDICATION: Headache TECHNIQUE: Computed tomography (CT) of the head was performed without intravenous contrast. Sagittal and coronal reconstructions were performed. The mA was adjusted according to patient size. Iterative reconstruction technique was employed. The dose-length product was 605.33 mGy-cm. COMPARISON: None FINDINGS: No acute intracranial hemorrhage, acute infarction or abnormal extra axial fluid collection. Ventricles are normal and symmetric. No mass/mass effect. Mild mucosal thickening bilateral ethmoid sinusitis and partially visualized large mucous retention cyst at the inferior right maxillary sinus. The orbits and mastoid air cells are normal. IMPRESSION: 1. No acute intracranial process. Reviewed, dictated and finalized at location A.
--- OUTSIDE RECORDS SUMMARY | 2025-04-28 12:24 | XMS_ITS | Clinical Summary ---
Author Organization [facility] Office [address] [place] [phone] Care Team Providers Care Leaf Tier Name Role Phone Tomi Arenas MD Primary Care Provider Yee Tolbert Unavailable [phone] Fei Lind MD Unavailable [phone] Angela Rosales NP Unavailable [phone] Allergies No known active allergies Medications atenoloL [...] 1 capsule (100 mg total) by mouth 2 (two) times a day 4 Active hydroCHLOROthiaz macho [...] Active Problems Problem Noted Date Diagnosed Date Spondylosis of lumbar region without myelopathy or radiculopathy 02/20/2025 Status post reverse total shoulder replacement, left 02/10/2024 Rotator cuff arthropathy, left 01/25/2024 Pain of lower extremity 12/01/2023 Sacroiliitis 10/29/2023 Hyperlipidemia 09/15/2023 Hypertension 09/15/2023 Mitral valve disorder 09/15/2023 Stenosis of cervical spine with myelopathy 01/06 Cervical radiculopathy 01/24/2022 Coronary artery disease invo lving [place] coronary artery of [place] heart without angina pectoris 07/20/2016 S/P angioplasty with stent 07/20/2016 Resolved Problems Problem Noted Date Diagnosed Date Resolved Date Lumbar radiculopathy, acute 10/21/2021 12/17/2023 Encounters Date Type Department Care Team Description 03/24/2025 8:00 AM CDT - 03/24/2025 9:35 AM CDT Surgery [facility] Cardiac Catheterization [address] [place] [address] Fei Lind MD Off-Service Procedure 03/24/2025 7:19 AM CDT - 03/24/2025 9:52 AM CDT Hospital Encounter [facility] Cardiac Catheterization [address] [place] [address] Fei Lind MD Spondylosis of lumbar region without myelopathy or radiculopathy Discharge Disposition: Discharge to home or self care 03/20/2025 Telephone [facility] [address] [facility] [address] [place] [address] Darcy Crowe RN from Last 3 Months Surgical History Surgery Date Site/Laterality Comments KNEE ARTHROSCOPY 2008 Right Arthroscopy knee BACK SURGERY Back surgery, discectomy- lumbar KNEE ARTHROCENTESIS Arthrocentesis of the right knee joint HERNIA REPAIR CORONARY ANGIOPLASTY WITH STENT PLACEMENT 06/29/2011 - 06/28/2012 x 2 CERVICAL FUSION 08/27/2022 - 09/26/2022 CARPAL TUNNEL RELEASE Left CARDIAC CATHETERIZATION 03/24/2025 Spine Lumbar/Bila teral Procedure: Off-Service Procedure; Surgeon: Fei Lind MD; Location: [facility] CARDIAC PICU NURSE; Service: Pain Management; Laterality: Bilateral; Bilateral L3-L4 and L4-L5 medial branch nerve radiofrequency ablation Medical History Medical History Date Comments MVP [...] making you feel afraid or unsafe? 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 Gender Identity Not on file Sexual Orientation Not on file Obstetrics History Last Filed Vital Signs Vital Sign Reading Time Taken Comments Blood Pressure 118/82 03/24/2025 9:35 AM CDT Pulse 59 03/24/2025 9:35 AM CDT Temperature 36.2 C (97.2 F) 03/24/2025 7:36 AM CDT Respiratory Rate 14 03/24/2025 9:35 AM CDT Oxygen Saturation 95% 03/24/2025 9:35 AM CDT Inhaled Oxygen Concentration - - Weight 86.2 kg (190 lb) 03/24/2025 7:36 AM CDT Height 180.3 cm (5' 11) 03/24/2025 7:36 AM CDT Body Mass Index 26.5 03/24/2025 7:36 AM CDT Plan of Treatment Health Maintenance Due Date Last Done Comments Colon Cancer Screening-Colonoscopy 1960 Hepatitis C Screening 1960 Prostate Cancer Screening-PSA 1960 DTaP/Tdap/Td Vaccine (1 - Tdap) 09/24/2005 6 Pneumococcal vaccine 65+ (1 of 1 - PCV) 2010 Zoster Vaccine (1 of 2) 2010 Depression Screening 01/20/2025 01/21/2024, 01/21/2024, 12/17/2023, Additional history exists Influenza Vaccine (#1) 2025 , 03/24/2022, 03/29/2021, Additional history exists Well Visit 65+ 2025 Fall Risk Assessment 03/24/2026 03/24/2025 Hepatitis B Screening Completed 05/21/1999 , 12/18/1998, 11/20/1998 Medical Devices Implanted Type Area Animal Skinner Device Identifier Shelf Expiration Date Model / Serial / Lot [employer] Implant Pin Kit Glenoid Ar-9607s - Sna - [id number] Implanted:Qty: 1 on 02/11/2024 by Rex Munroe MD at [facility] Pin Left: Shoulder [employer] AR-9607S / NA / [id number] [employer] Univers Revers Shoulder 10 Stem Humeral Sterile Ar-9501-10s - [id number] Implanted:Qty: 1 on 02/11/2024 by Rex Munroe MD at [facility] Left: Shoulder [employer] [id number] 04/28/2027 AR-9501-1 0S / / [id number] [employer] Cup Humeral Univers Revers +2 Od36mm Shoulder Left Suture Oh-[id number]-[id number] - [id number] Implanted:Qty: 1 on 02/11/2024 by Rex Munroe MD at [facility] Left: Shoulder [employer] [id number] 01/27/2028 AR-9502F- 36LCPC / / [id number] [employer] Univers Revers Biosync 39mm 24mm Glenosphere Taper Baseplate Th-0427-4761 - [id number] Implanted:Qty: 1 on 02/11/2024 by Rex Munroe MD at [facility] Left: Shoulder [employer] [id number] 02/27/2028 AR-9564-2 439 / / [id number] [employer] Component Glenoid Modular Post Reverse 20mm Ar-9582-20 - [id number] Implanted:Qty: 1 on 02/11/2024 by Rex Munroe MD at [facility] Left: Shoulder [employer] 08/26/2028 AR-9582-2 0 / / [id number] [employer] Baseplate 24mm 20 Deg Full Augment [id number] - [id number] Implanted:Qty: 1 on 02/11/2024 by Rex Munroe MD at [facility] Left: Shoulder [employer] 09/26/2028 AR-9580-2 420S / / [id number] [employer] Univers Revers 5.5mm 44mm Lock Modular Glenoid Peripheral Screw Ar-9563-44 - [id number] Implanted:Qty: 2 on 02/11/2024 by Rex Munroe MD at [facility] Left: Shoulder [employer] 10/27/2027 AR-9563-4 4 / / [id number] [employer] Insert Humeral Combo Reverse Poly Univers Revers +3x36mm He-6455-2929-3 - [id number] Implanted:Qty: 1 on 02/11/2024 by Rex Munroe MD at [facility] Left: Shoulder [employer] [id number] 05/28/2025 AR-9503-3 639-3 / [id number] Procedures Procedure Name Priority Date/Time Associated Diagnosis Comments CARDIAC CATHETERIZATION Routine 03/24/20 8:44 AM CDT Spondylosis of lumbar region without myelopathy or radiculopathy from Last 3 Months Results * OFF-SERVICE PROCEDURE (03/24/2025 8:44 AM CDT) Anatomical Region Laterality Modality X-Ray Angiograph y Narrative 03/29/2025 7:33 AM CDT Please see OpNote for result. us eFi Lind MD CV CARDIAC CATH PROCEDU RES Final Result from Last 3 Months Insurance MEDICARE [facility] MEDICARE SUPPLEMENT MEDICARE [facility] BLUE CROSS MEDICARE SUPPLEMENT Advance Directives For more information, please contact: [phone] * Full Code (Latest Code Status on File) Date Activated Date Inactivated Comments 02/11/2024 10:38 AM 02/11/2024 5:12 PM Care Teams Leaf Tier Relationship Specialty Start Date End Date Tomi Arenas MD PCP - General 08/24/07 Yee Tolbert PA [address] [place] [address] [address] [place] [address] Physician Records And Information Manager Orthopedic Surgery 02/11/24 Fei Lind MD [address] [place] [address] [address] [place] [address] Consulting Physician Anesthesiology 10/20/24 Angela Rosales NP [address] [place] [address] [address] [place] [address] Nurse Practitioner Family Medicine 10/20/24
--- OUTSIDE RECORDS SUMMARY | 2025-04-28 12:24 | XMS_ITS | Clinical Summary ---
Author Organization [facility] Address [address] [place] [address] Phone Care Team Providers Care Lead Slot Technician Name Role Phone Tomi Arenas MD Primary Care Provider [phone] Allergies No known active allergies Medications atorvastatin [...] on file Legal Sex Male 1:47 PM ARC AND GAS WELDER Gender Identity Not on file Sexual Orientation Not on file Last Filed Vital Signs Vital Sign Reading Time Taken Comments Blood Pressure 120/80 08/29/2020 9:21 AM ARC AND GAS WELDER Pulse 60 08/29/2020 9:21 AM ARC AND GAS WELDER Temperature 36.5 C (97.7 F) 08/29/2020 9:21 AM ARC AND GAS WELDER Respiratory Rate - - Oxygen Saturation - - Inhaled Oxygen Concentration - - Weight 85.7 kg (189 lb) 08/29/2020 9:21 AM ARC AND GAS WELDER Height 180.3 cm (5' 11) 08/29/2020 9:21 AM ARC AND GAS WELDER Body Mass Index 26.36 08/29/2020 9:21 AM ARC AND GAS WELDER Plan of Treatment Health Maintenance Due Date Last Done Comments DTAP/TDAP/TD VACCINES (1 - Tdap) 1979 COLORECTAL SCREENING 2005 Colorectal Cancer Screening 2005 FIT-DNA Q 3 years 2005 FIT/FOBT Q 1 year 2005 Flex Sig/CT Colonography Q 5 years 2005 PNEUMOCOCCAL VACCINE 50+ YEARS (1 of 1 - PCV) 03/04/20 10 ZOSTER VACCINE (1 of 2) 2010 INFLUENZA VACCINE (#1) 2025 RSV VACCINE (60+ or ) (1 - 1-dose 75+ series) 2035 Insurance BLUE PREFERRED Care Teams Lead Slot Technician Relationship Specialty Start Date End Date Tomi Arenas MD [address] [place] [phone] PCP - General Family Practice 08/29/20
--- OUTSIDE RECORDS SUMMARY | 2025-04-28 12:24 | XMS_ITS | Clinical Summary ---
Author Organization [facility] Address [address] [place] [address] Phone Care Team Providers Care Hand Ornament Maker Name Role Phone Tomi Arenas MD Primary Care Provider [phone] Medications methylPREDNISol one (MEDROL DOSPACK) 4 MG [...] Comments Blood Pressure 128/68 06/12/2023 8:58 PM GROUP BILLING COORDINATOR Pulse 66 06/12/2023 8:58 PM GROUP BILLING COORDINATOR Temperature 36.8 C (98.3 F) 06/12/2023 7:44 PM GROUP BILLING COORDINATOR Respiratory Rate 18 06/12/2023 8:58 PM GROUP BILLING COORDINATOR Oxygen Saturation 99% 06/12/2023 8:58 PM GROUP BILLING COORDINATOR Inhaled Oxygen Concentration - - Weight 86.2 kg (190 lb) 06/12/2023 7:44 PM GROUP BILLING COORDINATOR Height 180.3 cm (5' 11) 06/12/2023 7:44 PM GROUP BILLING COORDINATOR Body Mass Index 26.5 06/12/2023 7:44 PM GROUP BILLING COORDINATOR Plan of Treatment Health Maintenance Due Date Last Done Comments Hepatitis C Virus (HCV) Screening 1960 TdaP Immunization 1960 Cologuard 2005 Colonoscopy 2005 Colorectal Cancer Screening 2005 Immunochemical Fecal Occult Blood 2005 Pneumococcal Immunization (50+ years) (1 of 1 - PCV) 2010 Zoster Immunization (1 of 2) 2010 PSA Discussion 2015 Medicare Initial AWV [id number] 10/28/2023 Influenza Immunization (#1) 2025 09/0 01/2023, 03/24/2022, 03/29/2021, Additional history exists SARS-COV-2 Immunization (2024- season) 2025 03/28/2022, 05/01/2021, 09/19/2020, Additional history exists Respiratory [...] age to complete this topic Insurance MEDICARE [facility] Care Teams Hand Ornament Maker Relationship Specialty Start Date End Date Tomi Arenas MD [address] [place] [phone] PCP - General Family Medicine 06/12/23
--- NOTE | 2025-04-28 15:34 | ED_ITS ---
HPI - Headache General Chief Complaint: Headache Stated Complaint: Head Pain Since Thursday Night Time Seen by Provider: 04/28/25 15:20 Source: patient and family Mode of arrival: ambulatory Limitations: no limitations History of Present Illness HPI Narrative: This is a 65-year-old male with history of CAD status post stents x2, hypertension, hyperlipidemia who presents the ED for headache. Patient states that he has had a frontal headache for the past week. He has been seeing his PCP for this and was initially diagnosed with presumed Lyme disease as he had found a tick that the Lyme test came back negative. He was subsequently sent for a CT scan of his head yesterday which was negative. He has been taking hydrocodone which does help temporarily but his headache has continued. He has had a decreased appetite due to the pain. Denies weight loss, fevers, chills, numbness, tingling. Related Data Home Medications ?Medication ?Instructions ?Recorded ?Confirmed ?Last Taken ?Type atenolol 50 mg tablet 50 mg PO DAILY 06/01/2007/2312/22/24 07:00 History atorvastatin 40 mg tablet 40 mg PO DAILY 06/01/2007/2312/21/24 History celecoxib 200 mg capsule (Celebrex) 200 mg PO DAILY 03/29/25 12/21/24 History clopidogrel 75 mg tablet 75 mg PO DAILY 06/01/2007/2312/21/24 History hydrochlorothiazide 25 mg tablet 25 mg PO DAILY 03/29/25 12/21/24 History Allergies Allergy/AdvReac Type Severity Reaction Status Date / Time No Known Allergies Allergy Unknown Verified 03/29/25 14:20 Review of Systems 2 Review of Systems: Gen.: Denies fevers or chills Eyes: Denies eye pain or visual change ENT: Denies congestion Respiratory: Denies shortness of breath or cough CV: Denies chest pain or palpitations GI: Denies abdominal pain nausea, emesis or diarrhea denies burning, urgency, frequency or hematuria Musculoskeletal: Denies back pain or muscle pain Neuro: Denies numbness, tingling, weakness or focal weakness Skin: Denies rash Except as documented, all other systems reviewed and negative FOR[facility]LY [facility] Past Medical History Medical History Lumbar radiculopathy, right Mitral valve prolapse Surgical History Surgical History History of hernia repair History of lumbar discectomy History of carpal tunnel release (~1999) History of arthroscopy of right knee (~2007) Hx of right coronary artery stent placement (~2011) History of arthroscopy of knee (~2011) Social History Social History Smoking packs per day: 1 Smoking cigarettes per day: 20.0 Years smoked: 15 Smoking pack-years: 15.00 Smoking status: Former smoker Tobacco type: cigarettes Second hand tobacco smoke exposure: Yes Smoking end date: 06/29/94 Alcohol intake: current Drinks per week: 12 Substance use: never Substance use type: does not use Do You Feel Safe in your Home?: Yes Lack of Transportation: No Lack of Food: Never True Current Housing: I Have Housing Concerned About Future Housing: No Difficulty Paying Gas/Electric Bills: No Difficulty Paying for Meds: No Currently Unemployed: No Education: Trade/Vocational Certificate Difficulty w/ Childcare or Family Care: No Living arrangements: with family Spiritual care concerns: No Exam 2 Narrative: APPEARANCE: No acute distress, nontoxic, resting in bed EYES: EOMI HEENT: Normocephalic, atraumatic, OMM RESPIRATORY: No respiratory distress Clear to auscultation bilaterally with no rhonchi wheezing or rales. CARDIOVASCULAR: Regular rate and rhythm without murmurs rubs or gallops. ABDOMINAL: Soft, nontender, nondistended, no rebound or guarding MUSCULOSKELETAl: Moves all extremities. No clubbing, cyanosis or edema. NEURO: Awake and alert. Following commands, speech normal, no focal deficits. NIHSS 0 SKIN:: Warm, dry. No rashes lesions or abrasions PSYCHIATRIC: Normal affect/mood, Course Vital Signs Vital signs: Vital Signs Temperature 97.7 F 04/28/25 12:51 Pulse Rate 70 04/28/25 12:51 Respiratory Rate 16 04/28/25 12:51 Blood Pressure 121/80 04/28/25 12:51 Pulse Oximetry 100 04/28/25 12:51 Temperature 97.9 F 04/28/25 14:33 Pulse Rate 66 04/28/25 16:48 Respiratory Rate 12 04/28/25 16:48 Blood Pressure 122/82 04/28/25 16:48 Pulse Oximetry 97 04/28/25 16:48 Oxygen Delivery Room Air 04/28/25 14:33 MDM - Headache MDM Narrative Medical decision making narrative: 65-year-old male Presenting for headache. On initial evaluation patient was in mild distress afebrile, hemodynamic stable. Differentials include but are not limited to: Migraine, tension headache, mass, electrolyte abnormality, ICH Notable exam findings: Nonfocal neuro exam. Heart and lungs clear. Notable lab findings: CBC without significant abnormalities. CMP without significant abnormalities. COVID/flu/RSV negative. Notable imaging findings: CT head showed no acute process. Patient was given Compazine, Benadryl, Toradol for his headache. He did have significant improvements headache. Suspect this is a tension headache versus migraine. He was advised to continue taking the antibiotics that he was prescribed for sinusitis. He will be given a prescription for Compazine for the headache. He was advised follow-up with his PCP on Thursday as scheduled. Patient was agreeable to this plan. Given strict return precautions. Medical Records Attestation: I reviewed the patient's medical records. Lab Data Attestation: I reviewed the patient's lab results. 04/28/25 15:32 04/28/25 15:32 Labs: Lab Results 04/28/25 04/28/25 Range/Units 15:24 15:32 WBC 8.8 (4.5-10.0) K/mm3 RBC 4.65 (4.6-6.20) M/mm3 Hgb 14.3 (14.0-18.0) g/dL Hct 41.5 L (42.0-52.0) % MCV 89.2 (80-100) fl MCH 30.8 (26-34) pg MCHC 34.5 (32-36) g/dl RDW 11.8 (11.5-14.5) % Plt Count 278 (150-375) k/mm3 MPV 9.7 (7.4-10.4) fl Immature Gran % (Auto) 0.3 (0-0.5) % Neut % (Auto) 79.0 H (45.5-73.1) % Lymph % (Auto) 12.1 L (18.3-44.2) % Kingfisher % (Auto) 7.8 (2.6-8.5) % Eos % (Auto) 0.5 (0-4.4) % Baso % (Auto) 0.3 (0.2-1.2) % Lymph # (Auto) 1.07 (0.9-3.2) K/mm3 Kingfisher # (Auto) 0.7 H (0.1-0.6) K/mm3 Eos # (Auto) 0.0 (0-0.3) K/mm3 Baso # (Auto) 0.0 (0.0-0.1) K/mm3 Abs Immat Gran (auto) 0.03 (0.00-0.031) K/mm3 Absolute Neuts (auto) 7.0 H (1.3-6.7) K/mm3 Absolute Nucleated RBC 0.000 (0.0-0.012) K/mm3 Nucleated RBC % 0.0 (0.0-0.2) % Sodium 134 L (137-145) mmol/L Potassium 4.0 (3.4-5.0) mmol/L Chloride 95 L (98-107) mmol/L Carbon Dioxide 31 H (22-30) mmol/L Anion Gap 8 (4-12) mmol/L BUN 15 D (9-20) mg/dL Creatinine 0.68 L (0.7-1.3) mg/dL Estim Creat Clear Calc 99 ml/min Estimated GFR > 60 (59 - ) Glucose 120 H (65-110) mg/dL Calcium 9.3 (8.4-10.2) mg/dL Total Bilirubin 0.7 (0.2-1.3) mg/dL AST 21 (17-59) U/L ALT 18 (6-50) U/L Alkaline Phosphatase 74 (38-126) U/L Total Protein 7.4 (6.3-8.2) g/dL Albumin 4.4 (3.5-5.1) g/dL Influenza A (RT-PCR) Negative (Negative) Influenza B (RT-PCR) Negative (Negative) RSV (RT-PCR) Negative (Negative) SARS-CoV-2 RNA (RT-PCR) Negative (Negative) Imaging Data Attestation: I personally reviewed and interpreted this imaging study as follows: Radiologist's impression: Impressions Head CT 04/28/25 16:26 IMPRESSION: 1. No acute intracranial process. Discharge Plan Discharge Clinical Impression: Headache Qualifiers: Headache type: unspecified Headache chronicity pattern: acute headache I ntractability: not intractable Qualified Code(s): R51.9 - Headache, unspecified Patient Disposition: Home Condition: Stable Instructions: Antibiotic Form, Acute Headache (ED) Additional Instructions: CT showed no evidence of brain bleed or masses. You likely have a headache that may be a migraine headache. Your given a prescription for Compazine, take this as prescribed. Continue to take the hydrocodone your previously prescribed. Follow-up with your PCP next week as scheduled. Return to the ED for any new or worsening symptoms. Patient Language: Maori Prescriptions: New prochlorperazine maleate [Compazine] 10 mg tablet 10 mg PO Q8H PRN (Reason: headache) Qty: 14 0RF No Action clopidogrel 75 mg tablet 75 mg PO DAILY atenolol 50 mg tablet 50 mg PO DAILY atorvastatin 40 mg tablet 40 mg PO DAILY celecoxib [Celebrex] 200 mg capsule 200 mg PO DAILY hydrochlorothiazide 25 mg tablet 25 mg PO DAILY tramadol 50 mg tablet 50 mg PO Q6H PRN (Reason: pain) Qty: 12 0RF Follow-up/Referrals: Deepa,MD Tomi [Primary Care Provider, Family Practice]
[2025-04-28 15:39] LABS: Hematocrit 41.5 % (42.0-52.0); Hemoglobin 14.3 g/dL (14.0-18.0); Immature Granulocyte Percent A 0.3 % (0-0.5); Lymphocytes Absolute Auto 1.07 K/mm3 (0.9-3.2); Mean Corpuscular HGB Conc 34.5 g/dl (32-36); Mean Corpuscular Hemoglobin 30.8 pg (26-34); Mean Corpuscular Volume 89.2 fl (80-100); Nucleated Red Blood Cells Absolute Auto 0.000 K/mm3 (0.0-0.012); Nucleated Red Blood Cells Perc 0.0 % (0.0-0.2); Platelet Count Result 278 k/mm3 (150-375); Red Blood Count 4.65 M/mm3 (4.6-6.20); White Blood Count 8.8 K/mm3 (4.5-10.0)
--- OUTSIDE RECORDS SUMMARY | 2025-04-28 15:43 | XMS_ITS | Encounter Summary ---
Author Organization [facility] Address [facility] [place] [address] Care Team Providers Care Servicing Manager Name Role Phone Tomi Arenas MD Primary Care Provider Gaurav Kitchen MD Unavailable Unavailable Encounter Details Date Type Department Care Team (Late st Contact Info) Description 03/01/2014 [facility] AT [address] [address] Scott Guan MD Social History Tobacco Use Types Packs/Day Years Used Date Smoking Tobacco: Former Alcohol Use Standard Drinks/Week Comments Yes 0 [...] 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 file Not on file Not on file documented as of this encounter Plan of Treatment Not on file documented as of this encounter Visit Diagnoses Not on filedocumented in this encounter Additional Health Concerns Infection Onset Date Last Indicated Resolved Time COVID-19 Rule Out 05/26/2020 05/26/2020 05/27/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
--- OUTSIDE RECORDS SUMMARY | 2025-04-28 15:43 | XMS_ITS | Clinical Summary ---
Author Organization [facility] Address [address] [place] [address] Phone Care Team Providers Care Zig Zag Stitcher Name Role Phone Tomi Arenas MD Primary Care Provider [phone] Medications methylPREDNISol one (MEDROL DOSPACK) 4 MG [...] Comments Blood Pressure 128/68 06/12/2023 8:58 PM HEALTH INFORMATION TECH Pulse 66 06/12/2023 8:58 PM HEALTH INFORMATION TECH Temperature 36.8 C (98.3 F) 06/12/2023 7:44 PM HEALTH INFORMATION TECH Respiratory Rate 18 06/12/2023 8:58 PM HEALTH INFORMATION TECH Oxygen Saturation 99% 06/12/2023 8:58 PM HEALTH INFORMATION TECH Inhaled Oxygen Concentration - - Weight 86.2 kg (190 lb) 06/12/2023 7:44 PM HEALTH INFORMATION TECH Height 180.3 cm (5' 11) 06/12/2023 7:44 PM HEALTH INFORMATION TECH Body Mass Index 26.5 06/12/2023 7:44 PM HEALTH INFORMATION TECH Plan of Treatment Health Maintenance Due Date [...] age to complete this topic Insurance MEDICARE [facility] Care Teams Zig Zag Stitcher Relationship Specialty Start Date End Date Tomi Arenas MD [address] [place] [phone] PCP - General Family Medicine 06/12/23
--- OUTSIDE RECORDS SUMMARY | 2025-04-28 15:43 | XMS_ITS | Clinical Summary ---
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 Gender Identity Not on file Sexual Orientation Not on file Last Filed Vital Signs Vital Sign Reading Time Taken Comments Blood Pressure 120/80 08/29/2020 9:21 AM ELECTRICAL INSTALLER Pulse 60 08/29/2020 9:21 AM ELECTRICAL INSTALLER Temperature 36.5 C (97.7 F) 08/29/2020 9:21 AM ELECTRICAL INSTALLER Respiratory Rate - - Oxygen Saturation - - Inhaled Oxygen Concentration - - Weight 85.7 kg (189 lb) 08/29/2020 9:21 AM ELECTRICAL INSTALLER Height 180.3 cm (5' 11) 08/29/2020 9:21 AM ELECTRICAL INSTALLER Body Mass Index 26.36 08/29/2020 9:21 AM ELECTRICAL INSTALLER Plan of Treatment Health Maintenance Due Date [...] series) 2035 Insurance BLUE PREFERRED Care Teams Instrument Assembler Relationship Specialty Start Date End Date Tomi Arenas MD [address] [place] [phone] PCP - General Family Practice 08/29/20
--- OUTSIDE RECORDS SUMMARY | 2025-04-28 15:43 | XMS_ITS | Clinical Summary ---
Author Organization [facility] [address] [place] [phone] Care Team Providers Care Dumper Bulk System Name Role Phone Tomi Arenas MD Primary Care Provider Yee Tolbert Unavailable [phone] Fei Lind MD Unavailable [phone] Angela Rosales NP Unavailable [phone] Allergies No known active allergies Medications atenoloL [...] radiculopathy 01/24/2022 Coronary artery disease invo lving [place] coronary artery of [place] heart without angina pectoris 07/20/2016 S/P angioplasty with stent 07/20/2016 Resolved Problems Problem Noted Date Diagnosed Date Resolved Date Lumbar radiculopathy, acute 10/21/2021 12/17/2023 Encounters Date Type Department Care Team Description 03/24/2025 8:00 AM CDT - 03/24/2025 9:35 AM CDT Surgery [facility] Cardiac Catheterization [address] [place] [address] Fei Lind MD Off-Service Procedure 03/24/2025 7:19 AM CDT - 03/24/2025 9:52 AM CDT Hospital Encounter [facility] Cardiac Catheterization [address] [place] [address] Fei Lind MD Spondylosis of lumbar region without myelopathy or radiculopathy Discharge Disposition: Discharge to home or self care 03/20/2025 Telephone [facility] Pain Management Clinic 2 [facility] 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 Gender Identity Not on file Sexual Orientation [...] 12/18/1998, 11/20/1998 Medical Devices Implanted Type Area Instructional Supervisor Device Identifier Shelf Expiration Date Model / Serial / Lot [employer] Implant Pin Kit Glenoid Ar-9607s - Sna - [id number] Implanted:Qty: 1 on 02/11/2024 by Rex Munroe MD at [facility] Pin Left: Shoulder [employer] AR-9607S / NA / [id number] [employer] Univers Revers Shoulder 10 Stem Humeral Sterile Ar-9501-10s - [id number] Implanted:Qty: 1 on 02/11/2024 by Rex Munroe MD at [facility] Left: Shoulder [employer] [id number] 04/28/2027 AR-9501-1 0S / / [id number] [employer] Cup Humeral Univers Revers +2 Od36mm Shoulder Left Suture [id number] - [id number] Implanted:Qty: 1 on 02/11/2024 by Rex Munore MD at [facility] Left: Shoulder [employer] [id number] 01/27/2028 AR-9502F- 36LCPC / / [id number] [employer] Univers Revers Biosync 39mm 24mm Glenosphere Taper Baseplate [id number] - [id number] Implanted:Qty: 1 on 02/11/2024 by Rex Munroe MD at [facility] Left: Shoulder [employer] [id number] 02/27/2028 AR-9564-2 439 / / [id number] [employer] Component Glenoid Modular Post Reverse 20mm Ar-9582-20 - [id number] Implanted:Qty: 1 on 02/11/2024 by Rex Munroe MD at [facility] Left: Shoulder [employer] 08/26/2028 AR-9582-2 0 / / [id number] [employer] Baseplate 24mm 20 Deg Full Augment [id number] - [id number] Implanted:Qty: 1 on 02/11/2024 by Rex Munroe MD at [facility] Left: Shoulder [employer] 09/26/2028 AR-9580-2 420S / / [id number] [employer] Univers Revers 5.5mm 44mm Lock Modular Glenoid Peripheral Screw Ar-9563-44 - [id number] Implanted:Qty: 2 on 02/11/2024 by Rex Munroe MD at [facility] Left: Shoulder [employer] 10/27/2027 AR-9563-4 4 / / [id number] [employer] Insert Humeral Combo Reverse Poly Univers Revers +3x36mm [id number] - [id number] Implanted:Qty: 1 on 02/11/2024 by Rex Munroe MD at [facility] Left: Shoulder [employer] [id number] 05/28/2025 AR-9503-3 639-3 / [id number] Procedures Procedure Name Priority Date/Time Associated Diagnosis Comments CARDIAC CATHETERIZATION Routine 03/24/20 8:44 AM CDT Spondylosis of lumbar region without myelopathy or radiculopathy from Last 3 Months Results * OFF-SERVICE PROCEDURE (03/24/2025 8:44 AM CDT) Anatomical Region Laterality Modality X-Ray Angiograph y Narrative 03/29/2025 7:33 AM CDT Please see OpNote for result. us Fei Lind MD CV CARDIAC CATH PROCEDU RES Final Result from Last 3 Months Insurance MEDICARE [facility] MEDICARE SUPPLEMENT MEDICARE [facility] BLUE CROSS MEDICARE SUPPLEMENT Advance Directives For more information, please contact: [phone] * Full Code (Latest Code Status on File) Date Activated Date Inactivated Comments 02/11/2024 10:38 AM 02/11/2024 5:12 PM Care Teams Dumper Bulk System Relationship Specialty Start Date End Date Tomi Arenas MD PCP - General 08/24/07 Yee Tolbert PA [address] [place] [address] [address] [place] [address] Physician Carpet Cutter Orthopedic Surgery 02/11/24 Fei Lind MD [address] [place] [address] [address] [place] [address] Consulting Physician Anesthesiology 10/20/24 Angela Rosales NP [address] [place] [address] [address] [place] [address] Nurse Practitioner Family Medicine 10/20/24
--- OUTSIDE RECORDS SUMMARY | 2025-04-28 15:43 | XMS_ITS | Clinical Summary ---
Author Organization [facility] Address [address] [place] [address] Care Team Providers Care Cable Tool Operator Name Role Phone Tomi Sorenson MD Primary Care Provider [phone] Allergies No known active allergies Medications celecoxib (CELEBREX) 200 MG capsule Celebrex (celecoxib) capsule 200 mg; take as directed; 0; 31-Aug-2013; Active 08/31/2013 Active traZODone 150 MG tablet Take 1 tablet by mouth daily. 04/26/2012 Active atenolol 50 MG tablet Take 1 tablet by mouth daily. 04/13/2012 Active clopidogrel 75 MG tablet Take 1 tablet by mouth daily. 09/29/2012 Active nitroGLYCERIN 0.[address] 1 tablet (0.4 mg total) under the tongue every 5 (five) minutes as needed for Chest Pain. 25 tablet 07/23/2016 Active hydroCHLOROthia zide 25 MG tablet Take 25 mg by mouth daily. 05/16/2020 Active gabapentin 300 MG capsule Take 300 mg by mouth 2 (two) times daily. 09/23/2021 Active rosuvastatin 40 MG tablet Take 40 mg by mouth daily. 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 01/06 Cervical radiculopathy 01/24/2022 Neck pain 11/08/2021 Lumbar radiculopathy, acute 10/21/2021 Chest pain of uncertain etiology 07/23/2016 SOB (shortness of breath) 07/23/2016 Coronary artery disease invo lving lumbee coronary artery of lumbee heart without angina pectoris 07/20/2016 S/P angioplasty with stent 07/20/2016 Mitral valve disorder Hypertension Hyperlipidemia Encounters Date Type Department Care Team Description 04/27/2025 1:37 PM CDT Hospital Encounter [facility] [address] [place] [address] Tomi Sorenson MD Arrived 04/27/2025 Orders Only [facility] [address] [place] [address] Tomi Sorenson MD 04/26/2025 3:02 PM CDT - 04/26/2025 11:59 PM CDT Hospital En[facility] [address] [place] [address] Tomi Sorenson MD Arrived Discharge Disposition: Home or Self Care (Routine Discharge) 04/26/2025 Travel from Last 3 Months Family History Medical History Relation Comments Hypertension Other Positive for hyp ertension. 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 Not on file Not on file Last Filed Vital Signs Vital Sign Reading Time Taken Comments Blood Pressure 160/87 04/04/2022 2:06 PM CDT Pulse 61 04/04/2022 2:06 PM CDT Temperature 36.6 C (97.8 F) 04/04/2022 2:06 PM CDT Respiratory Rate 18 04/04/2022 2:06 PM CDT Oxygen Saturation 99% 04/04/2022 2:06 PM CDT Inhaled Oxygen Concentration - - Weight 86.2 kg (190 lb) 04/01/2022 1:14 PM CDT Height 180.3 cm (5' 11) 04/01/2022 1:14 PM CDT Body Mass Index 26.5 04/01/2022 1:14 PM CDT Plan of Treatment Health Maintenance Due Date Last Done Comments ASCVD Statin 1960 Hepatitis C 1978 Pneumococcal Vaccine: 50+ Years (1 of 2 - PCV) 1979 DTaP, Tdap and Td Vaccines (1 - Tdap) 09/24/2005 09/23/2005 Zoster Vaccines (1 of 2) 2010 ASCVD LDL 03/18/2013 03/18/2012 RSV Immunization or 60+ Years (1 - Risk 60-74 years 1-dose series) 2020 COVID-19 Vaccine (4 - season) 2025 05/01/2021, 09/19/2020, 08/28/2020 Influenza Adult (#1) 2025 03/29/2021, 03/29/2020, 03/16/2019, Additional history exists Colorectal Cancer Screening Colonoscopy (10 Years) 05/29/2030 05/29/2020, 05/29/2020 Hepatitis A Vaccines Aged Out 09/23/2005, 03/25/20 05 No longer eligible based on patient's age to complete this topic Meningococcal B Vaccine Aged Out No l onger eligible based on patient's age to complete this topic Meningococcal Vaccine Aged Out No nicole mariel eligible based on patient's age to complete this topic RSV Immunizations Under 20 Months Aged Out No longer eligible based on patient's age to complete this topic Procedures Procedure Name Priority Date/Time Associated Diagnosis Comments RESPIRATORY PCR PANEL 2 Routine 04/27/2025 1:48 PM CDT Fever SED RATE, ERYTHROCYTE (ESR) Routine 04/27/2025 1:47 PM CDT Arthralgia CBC W/DIFF AUTOMATED Routine 04/27/2025 1:[address] HEAD WO CON STAT 04/26/2025 3:07 PM CDT Headache COLONOSCOPY 05/29/2020 9:04 AM SOFT BOARDER LIPID PANEL Routine 03/18/2012 7:35 AM CDT from Last 3 Months or Most Recently Relevant to Health Maintenance Results * RESPIRATORY PCR PANEL (W COVID) (04/27/2025 1:48 PM CDT) ADENOVIRUS PCR (RESP) NOT DETECTED NOT DETECTED 04/27/2025 7:18 PM CDT [facility] CORONAVIRUS 229E PCR (RESP) NOT DETECTED NOT DETECTED 04/27/2025 7:18 PM CDT [facility] CORONAVIRUS HKU1 PCR (RESP) NOT DETECTED NOT DETECTED 04/27/2025 7:18 PM CDT [facility] CORONAVIRUS NL63 PCR (RESP) NOT DETECTED NOT DETECTED 04/27/2025 7:18 PM CDT [facility] CORONAVIRUS OC43 PCR (RESP) NOT DETECTED NOT DETECTED 04/27/2025 7:18 PM CDT [facility] METAPNEUMOVIRUS PCR (RESP) NOT DETECTED NOT DETECTED 04/27/2025 7:18 PM CDT [facility] RHINOVIRUS/ENTEROV IRUS PCR (RESP) NOT DETECTED NOT DETECTED 04/27/2025 7:18 PM CDT [facility] INFLUENZA A PCR (RESP) NOT DETECTED NOT DETECTED 04/27/2025 7:18 PM CDT [facility] INFLUENZA B PCR (RESP) NOT DETECTED NOT DETECTED 04/27/2025 7:18 PM CDT [facility] PARAINFLUENZA 1 PCR (RESP) NOT DETECTED NOT DETECTED 04/27/2025 7:18 PM CDT [facility] PARAINFLUENZA 2 PCR (RESP) NOT DETECTED NOT DETECTED 04/27/2025 7:18 PM CDT [facility] PARAINFLUENZA 3 PCR (RESP) NOT DETECTED NOT DETECTED 04/27/2025 7:18 PM CDT [facility] PARAINFLUENZA 4 PCR (RESP) NOT DETECTED NOT DETECTED 04/27/2025 7:18 PM CDT [facility] RSV PCR (RESP) NOT DETECTED NOT DETECTED 04/27/2025 7:18 PM CDT [facility] B PARAPERTUSIS PCR (RESP) NOT DETECTED NOT DETECTED 04/27/2025 7:18 PM CDT [facility] BORDETELLA PERTUSSIS PCR (RESP) NOT DETECTED NOT DETECTED 04/27/2025 7:18 PM CDT [facility] CHLAMYDOPHILA PNEUMONIAE PCR (RESP) NOT DETECTED NOT DETECTED 04/27/2025 7:18 PM CDT [facility] MYCOPLASMA PNEUMONIAE PCR (RESP) NOT DETECTED NOT DETECTED 04/27/2025 7:18 PM CDT [facility] CORONAVIRUS SARS COV 2 PCR (RESP) NOT DETECTED NOT DETECTED 04/27/2025 7:18 PM CDT [facility] NASOPHARYNGEAL SWAB / Unknown 04/27/2025 1:48 PM CDT Tomi Sorenson MD MICROBIOLOGY - GENERAL [facility] Final Result [facility] [address] [place] [address], [place] [phone] [id number] * SED RATE, ERYTHROCYTE (ESR) (04/27/2025 1:47 PM CDT) ESR 9 0 - 15 MM/HR 04/27/2025 2:10 PM CDT [facility] 04/27/2025 1:47 PM CDT Tomi Sorenson MD LABORATORY Final Resul t [facility] [address] [place] [address], [place] [phone] * (ABNORMAL) CBC W/DIFF AUTOMATED (04/27/2025 1:47 PM CDT) WBC 11.27(H) 4.00 - 10.80 x10'3/uL 04/27/2025 1:53 PM CDT [facility] RBC 4.75 4.50 - 6.10 x10'6/uL 04/27/2025 1:53 PM CDT [facility] HGB 14.5 13.0 - 18.0 G/DL 04/27/2025 1:53 PM CDT [facility] HCT 42.1 37.0 - 52.0 % 04/27/2025 1:53 PM CDT [facility] MCV 88.6 78.0 - 100.0 FL 04/27/2025 1:53 PM CDT [facility] MCH 30.5 27.0 - 31.0 PG 04/27/2025 1:53 PM CDT [facility] MCHC 34.4 33.0 - 36.0 G/DL 04/27/2025 1:53 PM CDT [facility] RDW 11.5 11.5 - 14.5 % 04/27/2025 1:53 PM CDT [facility] PLT 278 150 - 350 x10'3/uL 04/27/2025 1:53 PM CDT [facility] MPV 9.7 7.4 - 10.4 FL 04/27/2025 1:53 PM CDT [facility] CBC COMMENT NORMAL REFERENCE RANGE NOT ESTABLISHED FOR THE PROPORTIONAL LEUKOCYTE DIFFERENTIAL. 04/27/2025 1:53 PM CDT [facility] NEUTROPHILS % 85.6 % 04/27/2025 1:53 PM CDT [facility] LYMPHOCYTES % 7.1 % 04/27/2025 1:53 PM CDT [facility] MONOCYTES % 6.4 % 04/27/2025 1:53 PM CDT [facility] EOSINOPHILS % 0.1 % 04/27/2025 1:53 PM CDT [facility] BASOPHILS % 0.4 % 04/27/2025 1:53 PM CDT [facility] IMMATURE GRANS % 0.4 % 04/27/20 1:53 PM CDT [facility] NRBC % 0.0 % 04/27/2025 1:53 PM CDT [facility] ABS. NEUTROPHILS 9.66(H) 1.60 - 8.30 x10'3/uL 04/27/2025 1:53 PM CDT [facility] ABS. LYMPHOCYTES 0.80 0.80 - 4.70 x10'3/uL 04/27/2025 1:53 PM CDT [facility] ABS. MONOCYTES 0.72 0.00 - 1.50 x10'3/uL 04/27/2025 1:53 PM CDT [facility] ABS. EOSINOPHILS 0.01 0.00 - 0.40 x10'3/uL 04/27/2025 1:53 PM CDT [facility] ABS. BASOPHILS 0.04 0.00 - 0.20 x10'3/uL 04/27/2025 1:53 PM CDT [facility] ABS. IMMATURE GRANULOCYTES 0.04(H) 0.00 - 0.03 x10'3/uL 04/27/2025 1:53 PM CDT [facility] ABS. NUCLEATED RBC'S 0.00 0.00 - 0.01 x10'3/uL 04/27/2025 1:53 PM CDT [facility] 04/27/2025 1:4 7 PM CDT us Tomi Sorenson MD LABORATORY Final Resul t [facility] [address] [place] [address], * CT HEAD WO CON (04/26/2025 3:07 PM CDT) Anatomical Region Laterality Modality Head Computed Tomogra phy 04/26/2025 3:16 PM CDT Impressions 04/26/2025 3:20 PM CDT IMPRESSION: 1. No acute intracranial process identified. 2. Mild small vessel disease. 3. Sinus disease as described. Ordered By: TOMI SORENSON Interpreted By: Figueroa Rucker MD, 04/26/2025 3:16 PM Narrative 04/26/2025 3:20 PM CDT [address] [place] [address] Examination: CT of the head without contrast. [...] Procedure Note Figueroa Rucker MD - 04/26/[address] [place] [address] Examination: CT of the head without contrast. [...] By: Figueroa Rucker MD, 04/26/2025 3:[address]son MD CT Final Resul t * COLONOSCOPY (05/29/2020 9:04 AM SOFT BOARDER) us Pato Ellis MD GI PROCEDURE ORDERABLES Final Result * LIPID PANEL (03/18/2012 7:35 AM CDT) TRIGLYCERIDES 149 0 - 150 mg/dl [facility] TO EPIC CONVERSION CHOLESTEROL 209 0 - 200 mg/dl [facility] TO EPIC CONVERSION HDL 54 40 - 59 mg/dl [facility] TO EPIC CONVERSION LDL CONVERSION 125 0 - 100 mg/dl MEDIN[facility] TO EPIC CONVERSION 03/18/2012 7:35 AM CDT 03/18/2012 7:35 AM CDT Narrative MEDINFORMATIX TO EPIC CONVERSION - 04/23/2012 8:06 AM CDT Reviewed by FELIPE Apr 26 2012 2:24:00:000PM us Generic Conversion Md [facility] Final R esult MEDINFORMATIX TO EPIC CONVERSION from Last 3 Months or Most Recently Relevant to Health Maintenance Insurance MEDICARE [facility] Care Teams Cable Tool Operator Relationship Specialty Start Date End Date Tomi Sorenson MD [address] [place] [phone] PCP - General FAMILY PRACTICE 07/18/16
--- OUTSIDE RECORDS SUMMARY | 2025-04-28 15:43 | XMS_ITS | Encounter Summary ---
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 Not on file Not on file documented as of this encounter Plan of Treatment Not on file documented as of this encounter Results * RESPIRATORY PCR PANEL (W COVID) (04/27/2025 1:48 PM CDT) ADENOVIRUS PCR (RESP) NOT DETECTED NOT DETECTED 04/27/2025 7:18 PM CDT [facility] CORONAVIRUS 229E PCR (RESP) NOT DETECTED NOT DETECTED 04/27/2025 7:18 PM CDT [facility] CORONAVIRUS HKU1 PCR (RESP) NOT DETECTED NOT DETECTED 04/27/2025 7:18 PM CDT [facility] CORONAVIRUS NL63 PCR (RESP) NOT DETECTED NOT DETECTED 04/27/2025 7:18 PM CDT [facility] CORONAVIRUS OC43 PCR (RESP) NOT DETECTED NOT DETECTED 04/27/2025 7:18 PM CDT [facility] METAPNEUMOVIRUS PCR (RESP) NOT DETECTED NOT DETECTED 04/27/2025 7:18 PM CDT [facility] RHINOVIRUS/ENTEROV IRUS PCR (RESP) NOT DETECTED NOT DETECTED 04/27/2025 7:18 PM CDT [facility] INFLUENZA A PCR (RESP) NOT DETECTED NOT DETECTED 04/27/2025 7:18 PM CDT [facility] INFLUENZA B PCR (RESP) NOT DETECTED NOT DETECTED 04/27/2025 7:18 PM CDT [facility] PARAINFLUENZA 1 PCR (RESP) NOT DETECTED NOT DETECTED 04/27/2025 7:18 PM CDT [facility] PARAINFLUENZA 2 PCR (RESP) NOT DETECTED NOT DETECTED 04/27/2025 7:18 PM CDT [facility] PARAINFLUENZA 3 PCR (RESP) NOT DETECTED NOT DETECTED 04/27/2025 7:18 PM CDT [facility] PARAINFLUENZA 4 PCR (RESP) NOT DETECTED NOT DETECTED 04/27/2025 7:18 PM CDT [facility] RSV PCR (RESP) NOT DETECTED NOT DETECTED 04/27/2025 7:18 PM CDT [facility] B PARAPERTUSIS PCR (RESP) NOT DETECTED NOT DETECTED 04/27/2025 7:18 PM CDT [facility] BORDETELLA PERTUSSIS PCR (RESP) NOT DETECTED NOT DETECTED 04/27/2025 7:18 PM CDT [facility] CHLAMYDOPHILA PNEUMONIAE PCR (RESP) NOT DETECTED NOT DETECTED 04/27/2025 7:18 PM CDT [facility] MYCOPLASMA PNEUMONIAE PCR (RESP) NOT DETECTED NOT DETECTED 04/27/2025 7:18 PM CDT [facility] CORONAVIRUS SARS COV 2 PCR (RESP) NOT DETECTED NOT DETECTED 04/27/2025 7:18 PM CDT [facility] NASOPHARYNGEAL SWAB / Unknown 04/27/2025 1:48 PM CDT Tomi Arenas MD [facility] Final Result [facility] [address] [place] [address], [place] [phone] [id number] * SED RATE, ERYTHROCYTE (ESR) (04/27/2025 1:47 PM CDT) ESR 9 0 - 15 MM/HR 04/27/2025 2:10 PM CDT [facility] 04/27/2025 1:47 PM CDT Tomi Arenas MD LABORATORY Final Resul t [facility] [address] [place] [address], [place] [phone] * (ABNORMAL) CBC W/DIFF AUTOMATED (04/27/2025 1:47 PM CDT) WBC 11.27(H) 4.00 - 10.80 x10'3/uL 04/27/2025 1:53 PM CDT [facility] RBC 4.75 4.50 - 6.10 x10'6/uL 04/27/2025 1:53 PM CDT [facility] HGB 14.5 13.0 - 18.0 G/DL 04/27/2025 1:53 PM CDT [facility] HCT 42.1 37.0 - 52.0 % 04/27/2025 1:53 PM CDT [facility] MCV 88.6 78.0 - 100.0 FL 04/27/2025 1:53 PM CDT [facility] MCH 30.5 27.0 - 31.0 PG 04/27/2025 1:53 PM CDT [facility] MCHC 34.4 33.0 - 36.0 G/DL 04/27/2025 1:53 PM CDT [facility] RDW 11.5 11.5 - 14.5 % 04/27/2025 1:53 PM CDT [facility] PLT 278 150 - 350 x10'3/uL 04/27/2025 1:53 PM CDT [facility] MPV 9.7 7.4 - 10.4 FL 04/27/2025 1:53 PM CDT [facility] CBC COMMENT NORMAL REFERENCE RANGE NOT ESTABLISHED FOR THE PROPORTIONAL LEUKOCYTE DIFFERENTIAL. 04/27/2025 1:53 PM CDT [facility] NEUTROPHILS % 85.6 % 04/27/2025 1:53 PM CDT [facility] LYMPHOCYTES % 7.1 % 04/27/2025 1:53 PM CDT [facility] MONOCYTES % 6.4 % 04/27/2025 1:53 PM CDT [facility] EOSINOPHILS % 0.1 % 04/27/2025 1:53 PM CDT [facility] BASOPHILS % 0.4 % 04/27/2025 1:53 PM CDT [facility] IMMATURE GRANS % 0.4 % 04/27/20 1:53 PM CDT [facility] NRBC % 0.0 % 04/27/2025 1:53 PM CDT [facility] ABS. NEUTROPHILS 9.66(H) 1.60 - 8.30 x10'3/uL 04/27/2025 1:53 PM CDT [facility] ABS. LYMPHOCYTES 0.80 0.80 - 4.70 x10'3/uL 04/27/2025 1:53 PM CDT [facility] ABS. MONOCYTES 0.72 0.00 - 1.50 x10'3/uL 04/27/2025 1:53 PM CDT [facility] ABS. EOSINOPHILS 0.01 0.00 - 0.40 x10'3/uL 04/27/2025 1:53 PM CDT [facility] ABS. BASOPHILS 0.04 0.00 - 0.20 x10'3/uL 04/27/2025 1:53 PM CDT [facility] ABS. IMMATURE GRANULOCYTES 0.04(H) 0.00 - 0.03 x10'3/uL 04/27/2025 1:53 PM CDT [facility] ABS. NUCLEATED RBC'S 0.00 0.00 - 0.01 x10'3/uL 04/27/2025 1:53 PM CDT [facility] 04/27/2025 1:47 PM CDT us Tomi Arenas MD LABORATORY Final Resul t [facility] [address] [place] [address], documented in this encounter Visit Diagnoses Diagnosis Arthralgia- Primary Pain in joint, site unspecified Fever Fever, unspecified documented in this encounter Additional Health Concerns Infection Onset Date Last Indicated Resolved Time Respiratory Rule Out 04/27/2025 04/27/2025 025 7:18 PM CDT documented as of this encounter Care Teams Plaster Block Layer Relationship Specialty Start Date End Date Tomi Arenas MD [address] [place] [phone] PCP - General FAMILY PRACTICE 07/18/16 documented as of this encounter
--- OUTSIDE RECORDS SUMMARY | 2025-04-28 15:43 | XMS_ITS | Encounter Summary ---
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 Not on file Not on file documented as of this encounter Plan of Treatment Not on file documented as of this encounter Visit Diagnoses Not on filedocumented in this encounter Additional Health Concerns Infection Onset Date Last Indicated Resolved Time COVID-19 Rule Out 05/26/2020 05/26/2020 05/27/2020 1:45 PM 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
--- OUTSIDE RECORDS SUMMARY | 2025-04-28 15:43 | XMS_ITS | Encounter Summary ---
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 No / Unsure 01/24/2022 7:50 AM CDT documented as of this encounter Plan of Treatment Not on file documented as of this encounter Visit Diagnoses Not on filedocumented in this encounter Additional Health Concerns Infection Onset Date Last Indicated Resolved Time Respiratory Rule Out 04/27/2025 04/27/2025 025 7:18 PM CDT documented as of this encounter Care Teams Family Medicine Physician Assistant Relationship Specialty Start Date End Date Tomi Arenas MD [address] [place] [phone] PCP - General FAMILY PRACTICE 07/18/16 documented as of this encounter
[2025-04-28 15:48] LABS: Alanine Aminotransferase 18 U/L (6-50); Albumin Level 4.4 g/dL (3.5-5.1); Alkaline Phosphatase 74 U/L (38-126); Anion Gap 8 mmol/L (4-12); Aspartate Amino Transferase 21 U/L (17-59); Bilirubin,Total 0.7 mg/dL (0.2-1.3); Blood Urea Nitrogen 15 mg/dL (9-20); Calcium 9.3 mg/dL (8.4-10.2); Carbon Dioxide 31 mmol/L (22-30); Chloride 95 mmol/L (98-107); Estimated CRCL calculation 99 ml/min; Estimated Glomerular Filt Rate > 60; Glucose 120 mg/dL (65-110); Potassium 4.0 mmol/L (3.4-5.0); Sodium 134 mmol/L (137-145); Total Protein 7.4 g/dL (6.3-8.2)
[2025-04-28] MEDS: diphenhydrAMINE HCl CAP 25 MG CAPSULE PO (15:57)
[2025-04-28] MEDS: PROCHLORPERAZINE MALEATE 5 MG TABLET 10 MG PO (15:57)
[2025-04-28 16:38] LABS: Influenza A QL RT-PCR Negative (Negative); Influenza B QL RT-PCR Negative (Negative); RSV RNA, RT-PCR Negative (Negative); SARS-CoV-2 RNA PCR Negative (Negative)
[2025-04-28] MEDS: KETOROLAC 30 MG/ML VIAL (*BKC) IM (16:44)
== END 2025-04-28 17:55 | disposition home or self-care (01) ==
PROVIDERS: Emergency Provider Student in an Organized Health Care Education/Training Program; PCP Family Medicine
DX: R51.9 Headache, unspecified (principal); Z20.822 Contact with and (suspected) exposure to COVID-19; I25.10 Atherosclerotic heart disease of native coronary artery without angina pectoris; I10 Essential (primary) hypertension; I34.1 Nonrheumatic mitral (valve) prolapse; E78.5 Hyperlipidemia, unspecified; Z95.5 Presence of coronary angioplasty implant and graft; Z87.891 Personal history of nicotine dependence
CPT/HCPCS: 36415; 70450; 80053; 85025; 87637; 96372; 99284; A9270; J1885